=== PATIENT | male | born 1945 | race Caucasian/White ===

== ENCOUNTER → 2016-10-03 | Outpatient (CLI) | payer OTHER | LOC: BHFA 09:30 | PROVIDERS: ATTEND Internal Medicine Cardiovascular Disease | DX: I35.0 Nonrheumatic aortic (valve) stenosis (principal); E78.5 Hyperlipidemia, unspecified | CPT/HCPCS: 78452; 93017; A9500 ==

== ENCOUNTER → 2016-11-26 | Outpatient (CLI) | payer OTHER | LOC: FIMAGING 08:52 | PROVIDERS: ATTEND Specialist | DX: C79.51 Secondary malignant neoplasm of bone (principal); C61 Malignant neoplasm of prostate | CPT/HCPCS: 78306; A9503 ==

== ENCOUNTER → 2017-03-21 | Outpatient (CLI) | payer OTHER ==
[~2017-03-21] MED LIST: GADOBUTROL 10 ML VIAL IVP ONE
== END ==
LOC: FIMAGING 19:21
PROVIDERS: ATTEND Internal Medicine Hematology & Oncology
DX: C79.51 Secondary malignant neoplasm of bone (principal); Z85.46 Personal history of malignant neoplasm of prostate; M51.36 Other intervertebral disc degeneration, lumbar region
CPT/HCPCS: 72158; A9585

== ENCOUNTER 2017-03-31 14:44 | Emergency (ER) | payer OTHER ==
[2017-03-31 14:56] VITALS: O2SAT 96
--- NOTE | 2017-03-31 15:28 | EDPHY ---
H & P Time Seen by Provider: 03/31/17 15:15 HPI/ROS: CHIEF COMPLAINT: Constipation HISTORY OF PRESENT ILLNESS: 71-year-old male with a history of metastatic prostate cancer presents with constipation and abdominal cramping. He was placed on Percocet 3 weeks ago and since then has had a problem with constipation. He has been unable to have a normal bowel movement for at least a week. He has used a Fleet enema and stool softeners without relief. Associated with moderate abdominal cramping and urge to defecate. REVIEW OF SYSTEMS: Constitutional: No fever, no chills Eyes: No visual changes ENT: No sore throat Respiratory: No cough, no shortness of breath Cardiac: No chest pain Genitourinary: No hematuria, no dysuria Musculoskeletal: No leg pain or swelling Skin: No rash Neurological: No headache Psychiatric: Situational depression Past Medical/Surgical History: 1. Metastatic prostate cancer. 2. Prostate removal. Social History: . Lives in [place]. Nonsmoker. Smoking Status: Never smoked Physical Exam: General Appearance: Alert, pleasant Eyes: Pupils equal and round, no conjunctival pallor ENT, Mouth: Mucous membranes moist Neck: Normal inspection Respiratory: Lungs are clear to auscultation Cardiovascular: Regular rate and rhythm Gastrointestinal: Abdomen is soft and non-tender Rectal: Fecal impaction Neurological: A&O, nonfocal, normal gait Skin: Warm and dry, no rash Extremities: Normal inspection Psychiatric: Mood and affect normal Constitutional: Initial Vital Signs Temperature (C) 36.8 C 03/31/17 14:54 Heart Rate 88 03/31/17 14:54 Respiratory Rate 18 03/31/17 14:54 Blood Pressure 102/66 03/31/17 14:54 O2 Sat (%) 96 03/31/17 14:54 O2 Delivery Mode Room Air Allergies/Adverse Reactions: hydrocodone bitartrate [From [place]] Allergy (Verified 05/26/14 20:31) Other-Enter Comments Home Medications: Medication Instructions Recorded Calcium Carbonate [Tums 500MG (*)] 1,000 mg PO DAILY 08/07/15 Ibuprofen [Advil] 400 mg PO DAILY PRN 08/07/15 Multivitamins [Multivitamin (*)] 1 each PO DAILY 08/07/15 Enzalutamide [Xtandi] 160 mg PO DAILY@20 07/12/16 Aspirin EC [Aspirin EC 325 mg (*)] 325 mg PO DAILY #0 tab 07/13/16 Clopidogrel Bisulfate [Plavix (*)] 75 mg PO DAILY #90 tab 07/13/16 Medical Decision Making ED Course/Re-evaluation: Manual disimpaction attempted, but the patient was unable to tolerate the procedure and the stool was a little out of reach. A soapsuds enema was given and he had a large bowel movement after the enema. He felt much better and was ready to go home. Abdomen was soft and nontender on discharge. dietary instructions given. Magnesium citrate 300 mg orally given. Differential Diagnosis: Differential diagnosis includes though it is not limited to appendicitis, cholecystitis, diverticulitis, pyelonephritis, bowel perforation, small bowel obstruction. - Data Points Medications Given: Discontinued Medications Magnesium Citrate (Magnesium Citrate) 300 ml PO EDNOW ONE Stop: 03/31/17 18:14 Last Admin: 03/31/17 18:25 Dose: 300 ml Departure - Departure Disposition: Home, Routine, Self-Care Clinical Impression: Fecal impaction Condition: Good Instructions: Constipation (ED), Fecal Impaction (ED) Referrals: Brannon Herman MD [Primary Care Provider] - As per Instructions Report Scribed for: Kelly Echevarria Report Scribed by: Ina Burton Date of Report: 03/31/17 Time of Report: 15:26 Physician Review and Approval Statement: 03/31/17 15:26 Portions of this note were transcribed by a medical anthropology director. I personally performed a history, physical exam, medical decision making, and confirmed accuracy of information the transcribed note.
[2017-03-31] MEDS ORDERED: MAGNESIUM CITRATE 300 ML BOTTLE PO ONE (18:13)
[2017-03-31 18:38] VITALS: BP 106/71; PULSE 81; RESP 17; TEMP 98.8
== END 2017-03-31 18:33 | disposition home or self-care (01) ==
DX: K56.41 Fecal impaction (principal); Z79.82 Long term (current) use of aspirin; Z85.46 Personal history of malignant neoplasm of prostate

== ENCOUNTER 2017-05-16 10:43 | Inpatient (IN) | payer OTHER ==
[2017-05-16] MEDS ORDERED: ACETAMINOPHEN 325 MG TAB PO PRN (11:55)
[2017-05-16] MEDS ORDERED: ONDANSETRON 4 MG/2 ML VIAL IVP PRN (11:55)
[2017-05-16] MEDS ORDERED: ONDANSETRON DISINTEGRATING 4 MG TAB PO PRN (11:55)
[2017-05-16] MEDS ORDERED: MAGNESIUM HYDROXIDE 30 ML UDCUP PO PRN (11:56)
[2017-05-16] MEDS ORDERED: BISACODYL 10 MG SUPP PR PRN (11:56)
[2017-05-16] MEDS ORDERED: POLYETHYLENE GLYCOL 3350 17 GM PKT PO PRN (11:56)
[2017-05-16] MEDS ORDERED: LACTULOSE 20 GM/30 ML UDCUP PO PRN (11:56)
[2017-05-16] MEDS: NS 1,000 ML IV SCH ×2 (12:26→20:18)
[2017-05-16 13:26] LABS: ABSOLUTE NRBC COUNT 0.25 10^3/uL (0-0.01); ADD DIFF? YES; ADD MORPH? NO; ATYPICAL LYMPHOCYTE FLAG 20 (0-99); FRAGMENT RBC FLAG 0 (0-99); HEMATOCRIT 35.8 % (40.0-51.0); HEMOGLOBIN 11.8 g/dL (13.7-17.5); LIPEMIA HEMOLYSIS FLAG 80 (0-99); MEAN CELL HEMOGLOBIN 33.4 pg (27.9-34.1); MEAN CELL VOLUME 101.4 fL (81.5-99.8); MEAN PLATELET VOLUME 9.9 fL (8.7-11.7); NRBC-AUTO% 0.7 % (0.0-0.2); PLATELET CLUMPS FLAG 10 (0-99); PLATELET COUNT 89 10^3/uL (150-400); RED BLOOD CELL COUNT 3.53 10^6/uL (4.40-6.38); RED CELL DISTRIBUTION WIDTH 14.6 % (11.5-15.2)
[2017-05-16 13:27] LABS: ADD SCAN? NO; LEFT SHIFT FLG 300 (0-99)
[2017-05-16 13:46] LABS: ALANINE AMINOTRANSFERASE 39 IU/L (21-72); ALBUMIN 3.8 g/dL (3.5-5.0); ALKALINE PHOSPHATASE 804 IU/L (38-126); ANION GAP 11 mEq/L (8-16); ASPARTATE AMINOTRANSFERASE 39 IU/L (17-59); BILIRUBIN,TOTAL 0.5 mg/dL (0.1-1.4); CALCIUM 8.2 mg/dL (8.5-10.4); CARBON DIOXIDE 23 mEq/l (22-31); CHLORIDE 105 mEq/L (97-110); CREATININE 0.7 mg/dL (0.7-1.3); GLOMERULAR FILTRATION RATE > 60; GLUCOSE 93 mg/dL (70-100); POTASSIUM 4.3 mEq/L (3.5-5.2); SODIUM 139 mEq/L (134-144); TOTAL PROTEIN 6.2 g/dL (6.3-8.2)
[2017-05-16] MEDS ORDERED: CALCIUM CARBONATE 500 MG CHEWABLE TAB PO PRN (13:53)
[2017-05-16] MEDS ORDERED: PROCHLORPERAZINE MALEATE 5 MG TAB PO PRN (13:53)
[2017-05-16] MEDS ORDERED: DOCUSATE SODIUM 100 MG CAP PO PRN (13:53)
[2017-05-16] MEDS ORDERED: OXYCODONE/APAP 5/325 TAB PO PRN (14:03)
[2017-05-16] MEDS ORDERED: oxyCODONE IR 5 MG TAB PO PRN (14:04)
[2017-05-16 14:27] LABS: PLATELET ESTIMATE DECREASED (ADEQ); POLYCHROMASIA 1+
[2017-05-16] MEDS: ACYCLOVIR 350 MG in D5W 100 ML IV SCH ×2 (14:35→22:22)
--- NOTE | 2017-05-16 14:59 | GHP ---
[f rep st] HISTORY AND PHYSICAL DATE OF ADMISSION: 05/16/2017 CHIEF COMPLAINT: Zoster facial infection. HISTORY OF PRESENT ILLNESS: A pleasant 71-year-old male with metastatic hormone refractory prostate cancer diagnosed in 2000, who was sent over from [facility] today with progressive facial zoster infection. The patient noticed tingling along his temporal region and left face on Friday. He notes some tingling in his gum and teeth. Intermittently throbbing pain at the temporal region. He also reports new sores in his mouth starting on Friday. He has had decreased p.o. intake due to these sores. Noted the left side of the face to be red on Friday, thus went to clinic. At that time, he was started on acyclovir and asked to come back today. The zoster infection has progressed; thus, he was a direct admit for further evaluation. He also reports hot flashes, chills, nausea, constipation. He has had intermittent constipation. Denies cough or dysuria. No headache. No eye pain. His chronic lumbar pain has improved since radiation. PAST MEDICAL HISTORY: Prostate cancer diagnosed in 2010, status post robotic assisted prostatectomy in September 2011, external beam radiation. Underwent scrotal orchiectomy, status post Xtandi. Received radiation to the lumbar spine. Currently on treatment with docetaxel plus prednisone, first cycle May 06. CT 02/23 showing diffuse bone METS to thoracic spine, ribs and scapula. Other past medical history, coronary artery disease status post 2 stents, cath in 2015 showed 3-vessel disease and he opted for medical management at that time. PAST SURGICAL HISTORY: Scrotal orchiectomy. SOCIAL HISTORY: Lives in [place] with his . He has been 27 years. No kids. No alcohol, tobacco, or illicits. 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 FAMILY HISTORY: Mother with liver cancer. Maternal grandmother with lung cancer. Maternal aunt with ovarian cancer. Dad was healthy and at age 93. HOME MEDICATIONS: Tums p.r.n., oxycodone/acetaminophen 7.5/325 p.r.n., Compazine as needed, Colace as needed, Protonix 40 mg daily, Lipitor 20 mg at bedtime, acyclovir 400 mg t.i.d., multivitamin, ibuprofen, Plavix 75 daily, aspirin 81. ALLERGIES: Hydrocodone from [place]. PHYSICAL EXAMINATION: VITAL SIGNS: Temperature at 37.1. Vital signs have not been completed. GENERAL: Patient is tearful, lying in bed in no acute distress. HEENT: PERRLA. EOMI. Left temporal region to chin with erythema and small vesicles not open. There are a couple of vesicles and erythema in the left ear canal. There is no eye involvement. He has a small ulceration of the left upper palate along with small ulcerations on tongue. CV: Regular rate and rhythm. no murmurs, gallops, or rubs. LUNGS: Clear. There are no crackles or wheezing. ABDOMEN: Soft, nontender, nondistended. Positive bowel sounds. : No suprapubic tenderness. MUSCULOSKELETAL: 5/5 upper and lower extremities. NEUROLOGIC: 2 through 12 intact. No eye lag or cranial involvement with infection. PSYCH: Alert and oriented x3. LABORATORY DATA: WBC is 35, hemoglobin 11, hematocrit 35, platelets 89. Sodium 139, potassium 4.3, chloride 105, carbon dioxide 23, BUN 17, creatinine 0.7, calcium is 8.2, total bilirubin is 0.5, alkaline phosphatase is 804, total protein is 6.2, albumin is 3.8. ASSESSMENT AND PLAN: 1. Facial zoster infection: progressed, despite outpatient therapy. No neurologic/ophthalmic involvement. Treat aggressively with IV acyclovir. 2. Leukocytosis: WBC 35. Likely due to GM-CSF, also on steroids. Negative CXR , UA. Afebrile. 3. Metastatic prostate cancer: Status post robotic prostatectomy, orchidectomy and XRT to the lumbar spine. He is currently on Docetaxel and prednisone. Continue prednisone. We will have Oncology evaluate in the morning. 4. Coronary artery disease: Triple multivessel disease on catheterization in 2016. At that time, opted for medical management. Continue aspirin, statin, and Plavix. 5. Mouth pain secondary to chemo related lesions. Viscous lidocaine. 6. Anemia is likely secondary to chemotherapy. No need for transfusion at this time. 7. Thrombocytopenia secondary to chemotherapy. No active bleeding at this time. 8. Chronic back pain: takes Percocet at home. Try low-dose PO dilaudid here with bowel regimen 9. Diet regular. 10. Deep venous thrombosis prophylaxis, SCDs. 11. Disposition: Patient warrants inpatient admission given zoster infection in an immunocompromised patient warranting IV acyclovir. /[id number]/MODL MTDD
[2017-05-16] MEDS: MBX SOLN 30 ML BOTTLE PO PRN ×2 (15:17→20:16)
--- NOTE | 2017-05-16 15:25 | GCON ---
[f rep st] CONSULTATION REASON FOR CONSULTATION: Hormone-refractory, castrate-resistant prostate cancer. RECOMMENDATIONS: 1. I would continue the patient on his prednisone 5 p.o. b.i.d.. 2. I agree with IV acyclovir. EXECUTIVE SUMMARY: This patient has an elevated white count from Neulasta shot. He was treated wit h his 1st dose of chemotherapy on May 06, at which time he received docetaxel for castrate-resist ant prostate cancer with bony dominant disease. The course was uncomplicated, and he had prophylact ic Neulasta because he has had apparently extensive marrow involvement and also just finished a cour se of radiation, and there was a concern about myelosuppression. The patient had 3 days' history of left oral pain and left face pain and had shingles. He was started a day ago or so on acyclovir, a nd he presents today for worsening symptoms of pain and cannot eat. He has no fever. REVIEW OF SYSTEMS: Otherwise unremarkable. The patient is a nonsmoker. PAST MEDICAL HISTORY: He has a history of coronary artery disease and in 2015 had a couple stents p laced. He has a remote history of nephrolithiasis. He had an orchiectomy for prostate cancer and, of course, he had radical prostatectomy in 2011. FAMILY HISTORY: Remarkable for liver cancer, lung cancer and ovarian cancer. 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 He is to for a number of year s. PHYSICAL EXAMINATION: GENERAL: A gentleman looking his stated age. EYES: He has no scleral icter us. NECK: No cervical or supraclavicular adenopathy. LUNGS: Clear to P and A. CV: S1 normal. S2 normally split. No S3, S4 or murmur. ABDOMEN: Soft, nontender, and there is no hepatosplenomeg javi. HENT: He has left V3 distribution of shingles going up to the ear, down along the chin, and i nvolves the inside of his mouth on the left half of his tongue. ASSESSMENT: Shingles, V3 distribution. RECOMMENDATIONS: I recommend continuing with the acyclovir, and he needs probably some KBX for mout h sores, and we can treat him with dexamethasone oral suspension. He should improve, although it ma y take a week or 2 to heal. /[id number]/MODL
[2017-05-16 15:43] LABS: COLOR PALE YELLOW; LEUKOCYTE ESTERASE,URINE NEGATIVE (NEGATIVE); NITRITE,URINE NEGATIVE (NEGATIVE)
[2017-05-16] MEDS: SENNOSIDES/DOCUSATE SODIUM TAB PO SCH (20:17)
[2017-05-16] MEDS: ATORVASTATIN CALCIUM 20 MG TAB PO SCH (20:17)
[2017-05-16] MEDS: ASPIRIN 81 MG CHEWABLE TAB PO SCH (20:17)
[2017-05-16] MEDS: predniSONE 5 MG TAB PO SCH (20:17)
[2017-05-16] MEDS: PANTOPRAZOLE SODIUM 40 MG TAB PO SCH (20:17)
[2017-05-16] MEDS: CLOPIDOGREL BISULFATE 75 MG TAB PO SCH (20:17)
[2017-05-16] MEDS: HYDROmorphONE/DILAUDID 2 MG TAB PO PRN (20:30)
[2017-05-16] MEDS: LIDOCAINE 2% VISCOUS 15 ML UDCUP PO PRN (22:23)
[2017-05-17] MEDS: NS 1,000 ML IV SCH ×3 (03:20→20:40)
[2017-05-17] MEDS: LIDOCAINE 2% VISCOUS 15 ML UDCUP PO PRN ×3 (04:28→20:42)
[2017-05-17] MEDS: MBX SOLN 30 ML BOTTLE PO PRN ×4 (04:29→20:42)
[2017-05-17] MEDS: HYDROmorphONE/DILAUDID 2 MG TAB PO PRN ×2 (04:29→20:41)
[2017-05-17] MEDS: ACYCLOVIR 350 MG in D5W 100 ML IV SCH ×3 (05:55→22:15)
[2017-05-17 05:59] LABS: ABSOLUTE NRBC COUNT 0.22 10^3/uL (0-0.01); ADD DIFF? YES; ADD MORPH? NO; ATYPICAL LYMPHOCYTE FLAG 20 (0-99); FRAGMENT RBC FLAG 0 (0-99); HEMATOCRIT 31.6 % (40.0-51.0); HEMOGLOBIN 10.4 g/dL (13.7-17.5); LIPEMIA HEMOLYSIS FLAG 80 (0-99); MEAN CELL HEMOGLOBIN 32.9 pg (27.9-34.1); MEAN CELL HEMOGLOBIN CONCENTR. 32.9 g/dL (32.4-36.7); MEAN PLATELET VOLUME 9.7 fL (8.7-11.7); NRBC-AUTO% 0.8 % (0.0-0.2); PLATELET CLUMPS FLAG 0 (0-99); PLATELET COUNT 73 10^3/uL (150-400); RED BLOOD CELL COUNT 3.16 10^6/uL (4.40-6.38); RED CELL DISTRIBUTION WIDTH 14.6 % (11.5-15.2)
[2017-05-17 06:04] LABS: LEFT SHIFT FLG 210 (0-99)
[2017-05-17 06:05] LABS: ADD SCAN? NO
[2017-05-17 06:22] LABS: ANION GAP 10 mEq/L (8-16); CALCIUM 7.2 mg/dL (8.5-10.4); CARBON DIOXIDE 19 mEq/l (22-31); CHLORIDE 108 mEq/L (97-110); CREATININE 0.7 mg/dL (0.7-1.3); GLOMERULAR FILTRATION RATE > 60; GLUCOSE 87 mg/dL (70-100); POTASSIUM 4.4 mEq/L (3.5-5.2); SODIUM 137 mEq/L (134-144)
[2017-05-17 06:42] LABS: MACROCYTES 1+; PLATELET ESTIMATE DECREASED (ADEQ); POLYCHROMASIA 1+; TOXIC GRANULATION PRESENT
[2017-05-17] MEDS: predniSONE 5 MG TAB PO SCH ×2 (09:36→20:41)
[2017-05-17] MEDS: MULTIVITAMINS 1 EACH TAB PO SCH (09:36)
[2017-05-17] MEDS: SENNOSIDES/DOCUSATE SODIUM TAB PO SCH ×2 (09:37→20:41)
[2017-05-17] MEDS: ENOXAPARIN 40 MG/0.4 ML SYR SC SCH (09:38)
--- NOTE | 2017-05-17 10:42 | ASMTCMCOM ---
CM Note CM Note Notes: Pt with metastatic prostate cancer admitted with shingles. Pt is curently on IV acyclovir. It is too early to tell what his needs will be at [place]. C/M to follow. Date Signed: 05/17/2017 10:41 AM Electronically Signed By:Serena Salinas
--- NOTE | 2017-05-17 10:43 | SOAPPROG ---
SOAP Progress Note Assessment/Plan: Assessment: 1. Prostate cancer, metastatic, s/p cycle 1 of Taxotere 2. Zoster in multiple dermatomes Appears to be clinically improving. Plan: - continue IV acyclovir and prednisone - continue pain management 05/17/17 10:42 Subjective: feeling somewhat better Objective: exam: NAD erythematous rash on L chin, tongue, and forehead. Some vesicular lesions Vital Signs Temp Pulse Resp BP Pulse Ox 36.8 C 78 15 126/71 H 94 05/17/17 08:00 05/17/17 08:00 05/17/17 08:00 05/17/17 08:00 05/17/17 08:00 Laboratory Results 05/17/17 05:44 05/17/17 05:44 05/16/17 05/17/17 05/18/17 05:59 05:59 05:59 Intake Total 2954 Balance 2954 ICD10 Worksheet Patient Problems: Problems Problem Status Onset Adenocarcinoma of prostate Acute Bone metastases Acute Hydronephrosis with ureteral calculus Acute Parotitis Acute Ureterolithiasis Acute
--- NOTE | 2017-05-17 14:32 | HOSPPROG ---
Hospitalist Progress Note Assessment/Plan: # Acute facial zoster- affecting multiple dermatomes- sparing the eye - lesions are crusting - continue IV acyclovir - continue pain management with Dilaudid, viscous lidocaine, MBX # metastatic prostate cancer- actively receiving treatment- oncology following # acute leukocytosis WBC 35-> 28 presumed secondary acute zoster and growth stimulating factor- patient afebrile Chest x-ray (personally reviewed and interpreted)- no infiltrates -oxygen saturations 94% on room air - continue to monitor # coronary artery disease- no chest pain complaints - continue home meds # thrombocytopenia- presumed secondary to chemotherapy- no active bleeding - continue to monitor # prophylaxis Lovenox # diet regular # disposition-greater than 2 midnights as patient requiring IV acyclovir in close monitoring for active infection during immunosuppression Have discussed case with Dr. Mahan will continue IV acyclovir today reassess patient's progress in the morning Subjective: Pain appropriately controlled on current meds Objective: Vital Signs Temp Pulse Resp BP Pulse Ox 36.8 C 78 15 126/71 H 94 05/17/17 08:00 05/17/17 08:00 05/17/17 08:00 05/17/17 08:00 05/17/17 08:00 Laboratory Results 05/17/17 05:44 05/17/17 05:44 05/16/17 05/17/17 05/18/17 05:59 05:59 05:59 Intake Total 2954 Balance 2954 - Physical Exam Constitutional: chronically ill appearing Eyes: anicteric sclera Ears, Nose, Mouth, Throat: other ( left side of tongue with cluster of vesicles) Cardiovascular: regular rate and rhythym Respiratory: no respiratory distress Gastrointestinal: normoactive bowel sounds Genitourinary: no bladder fullness Skin: warm Musculoskeletal: No asymmetric calves Neurologic: AAOx3 Psychiatric: interacting appropriately Lymph, Heme, Immunologic: no cervical LAD ICD10 Worksheet Patient Problems: Problems Problem Status Onset Adenocarcinoma of prostate Acute Bone metastases Acute Hydronephrosis with ureteral calculus Acute Parotitis Acute Ureterolithiasis Acute
[2017-05-17] MEDS: IBUPROFEN 200 MG TAB PO PRN (14:40)
[2017-05-17] MEDS: ATORVASTATIN CALCIUM 20 MG TAB PO SCH (20:40)
[2017-05-17] MEDS: ASPIRIN 81 MG CHEWABLE TAB PO SCH (20:40)
[2017-05-17] MEDS: CLOPIDOGREL BISULFATE 75 MG TAB PO SCH (20:41)
[2017-05-17] MEDS: PANTOPRAZOLE SODIUM 40 MG TAB PO SCH (20:41)
[2017-05-18 04:30] VITALS: RESP 16
[2017-05-18] MEDS: NS 1,000 ML IV SCH (04:30)
[2017-05-18] MEDS: MBX SOLN 30 ML BOTTLE PO PRN ×2 (04:30→20:41)
[2017-05-18] MEDS: LIDOCAINE 2% VISCOUS 15 ML UDCUP PO PRN (04:31)
[2017-05-18] MEDS: HYDROmorphONE/DILAUDID 2 MG TAB PO PRN (04:55)
[2017-05-18 05:35] LABS: HEMATOCRIT 30.9 % (40.0-51.0); HEMOGLOBIN 10.2 g/dL (13.7-17.5); MEAN CELL HEMOGLOBIN 33.2 pg (27.9-34.1); MEAN CELL VOLUME 100.7 fL (81.5-99.8); RED BLOOD CELL COUNT 3.07 10^6/uL (4.40-6.38); RED CELL DISTRIBUTION WIDTH 14.6 % (11.5-15.2)
[2017-05-18] MEDS: ACYCLOVIR 350 MG in D5W 100 ML IV SCH ×3 (06:06→20:35)
[2017-05-18] MEDS: SENNOSIDES/DOCUSATE SODIUM TAB PO SCH ×2 (08:28→20:45)
[2017-05-18] MEDS: MULTIVITAMINS 1 EACH TAB PO SCH (08:35)
[2017-05-18] MEDS: predniSONE 5 MG TAB PO SCH ×2 (08:35→20:32)
[2017-05-18] MEDS: ENOXAPARIN 40 MG/0.4 ML SYR SC SCH (08:40)
--- NOTE | 2017-05-18 12:06 | SOAPPROG ---
SOAP Progress Note Assessment/Plan: Assessment: 1. Prostate cancer, metastatic, s/p cycle 1 of Taxotere 2. Zoster in multiple dermatomes Appears to be clinically improving. Plan: - continue IV acyclovir and prednisone. Will defer to internal medicine / ID re : when to change to PO - continue pain management - next taxotere due 05/27. should likely stay on suppressive acyclovir for subsequent cycles 05/17/17 10:42 05/18/17 12:05 Subjective: feeling better. less pain. Objective: exam: NAD zoster lesions are crusted over - no new vesicles. otherwise unchanged Vital Signs Temp Pulse Resp BP Pulse Ox 36.9 C 74 16 122/68 H 96 05/18/17 08:00 05/18/17 08:00 05/18/17 08:00 05/18/17 08:00 05/18/17 08:00 Laboratory Results 05/18/17 05:17 05/17/17 05:44 05/17/17 05/18/17 05/19/17 05:59 05:59 05:59 Intake Total 2954 3961 Balance 2954 3961 ICD10 Worksheet Patient Problems: Problems Problem Status Onset Adenocarcinoma of prostate Acute Bone metastases Acute Hydronephrosis with ureteral calculus Acute Parotitis Acute Ureterolithiasis Acute
--- NOTE | 2017-05-18 13:53 | HOSPPROG ---
Hospitalist Progress Note Assessment/Plan: # Acute facial zoster- affecting multiple dermatomes- sparing the eye - lesions are crusting pain controlled well with current regimen- less difficulty eating this am - continue IV acyclovir- transition to PO tomorrow will complete a 10d course on acyclovir 1g TID - recommending valacyclovir 1 gram daily while receiving chemo - continue pain management with Dilaudid, viscous lidocaine, MBX # metastatic prostate cancer- actively receiving treatment- oncology following # acute leukocytosis WBC 35-> 26 presumed secondary acute zoster and growth stimulating factor- patient afebrile Chest x-ray (personally reviewed and interpreted)- no infiltrates -oxygen saturations 94% on room air - continue to monitor # coronary artery disease- no chest pain complaints - continue home meds # thrombocytopenia- presumed secondary to chemotherapy- no active bleeding - continue to monitor # prophylaxis Lovenox # diet regular # disposition-greater than 2 midnights as patient requiring IV acyclovir in close monitoring for active infection during immunosuppression Have discussed case with Dr. Hathaway - will treat for 10d course acutely and then daily suppressive dosing until completion of chemo Subjective: feeling better Objective: Vital Signs Temp Pulse Resp BP Pulse Ox 36.9 C 74 16 122/68 H 96 05/18/17 08:00 05/18/17 08:00 05/18/17 08:00 05/18/17 08:00 05/18/17 08:00 Laboratory Results 05/18/17 05:17 05/17/17 05:44 05/17/17 05/18/17 05/19/17 05:59 05:59 05:59 Intake Total 2954 3961 Balance 2954 3961 - Physical Exam Constitutional: chronically ill appearing Eyes: anicteric sclera Ears, Nose, Mouth, Throat: moist mucous membranes Cardiovascular: regular rate and rhythym Respiratory: no respiratory distress Gastrointestinal: normoactive bowel sounds Genitourinary: no bladder fullness Skin: warm, other (lesions on chin and cheek crusting) Musculoskeletal: No asymmetric calves Neurologic: AAOx3 Psychiatric: interacting appropriately Lymph, Heme, Immunologic: no cervical LAD ICD10 Worksheet Patient Problems: Problems Problem Status Onset Adenocarcinoma of prostate Acute Bone metastases Acute Hydronephrosis with ureteral calculus Acute Parotitis Acute Ureterolithiasis Acute
[2017-05-18] MEDS: IBUPROFEN 200 MG TAB PO PRN (14:46)
--- NOTE | 2017-05-18 16:09 | ASMTCMCOM ---
CM Note CM Note Notes: Plan is for to tx to oral acyclovir. Anticipate pt will DC with no needs. CM available if needs change. Date Signed: 05/18/2017 04:09 PM Electronically Signed By:Serena Salinas
[2017-05-18] MEDS: ASPIRIN 81 MG CHEWABLE TAB PO SCH (20:31)
[2017-05-18] MEDS: PANTOPRAZOLE SODIUM 40 MG TAB PO SCH (20:32)
[2017-05-18] MEDS: ATORVASTATIN CALCIUM 20 MG TAB PO SCH (20:32)
[2017-05-18] MEDS: CLOPIDOGREL BISULFATE 75 MG TAB PO SCH (20:32)
[2017-05-19] MEDS ORDERED: ENOXAPARIN 80 MG/0.8 ML SYR SC SCH
[2017-05-19] MEDS: ACYCLOVIR 350 MG in D5W 100 ML IV SCH (05:57)
[2017-05-19] MEDS: IBUPROFEN 200 MG TAB PO PRN (07:28)
[2017-05-19] MEDS: MULTIVITAMINS 1 EACH TAB PO SCH (07:29)
[2017-05-19] MEDS: SENNOSIDES/DOCUSATE SODIUM TAB PO SCH (07:30)
[2017-05-19] MEDS: predniSONE 5 MG TAB PO SCH (07:30)
[2017-05-19] MEDS: ENOXAPARIN 40 MG/0.4 ML SYR SC SCH (07:31)
[2017-05-19 07:47] VITALS: BP 136/64; PULSE 80; TEMP 97.6; O2SAT 95
--- NOTE | 2017-05-19 11:42 | SOAPPROG ---
SOAP Progress Note Assessment/Plan: Assessment: 1. Prostate cancer, metastatic, s/p cycle 1 of Taxotere 2. Zoster in multiple dermatomes Clinically improving. Plan: - continue acyclovir and prednisone. Will defer to internal medicine / ID re: when to change to PO - continue pain management - next taxotere due 05/27. should likely stay on suppressive acyclovir for subsequent cycles 05/17/17 10:42 05/18/17 12:05 05/19/17 11:41 Subjective: stopped taking pain meds last night - pain recurred. feeling better now. Objective: exam: persistent erythema. no new zoster lesions. Vital Signs Temp Pulse Resp BP Pulse Ox 36.4 C 80 16 136/64 H 95 05/19/17 07:35 05/19/17 07:35 05/19/17 07:35 05/19/17 07:35 05/19/17 07:35 Laboratory Results 05/18/17 05:17 05/17/17 05:44 05/18/17 05/19/17 05/20/17 05:59 05:59 05:59 Intake Total 3961 665 1070 Balance 3961 665 1070 ICD10 Worksheet Patient Problems: Problems Problem Status Onset Adenocarcinoma of prostate Acute Bone metastases Acute Hydronephrosis with ureteral calculus Acute Parotitis Acute Ureterolithiasis Acute
--- NOTE | 2017-05-19 14:53 | ASDISCHSUM ---
Discharge Information Plan Status:Home with No Needs Medically Cleared to Leave: Discharge Date:05/19/2017 01:26 PM CM D/C Disposition:Home, Routine, Self-Care ADT D/C Disposition:Home, Routine, Self-Care Projected Discharge Date:05/19/2017 01:26 PM Transportation at D/C:Family Discharge Delay Reason: Follow-Up Date:05/19/2017 01:26 PM Discharge Slot: Final Diagnosis: Placement Information Patient Contact Information Contact Name:ROMULO Relationship: Address:[address] City:[place] Alternate Phone: [facility]/Zip Code:[place] [address] Email: Financial Information Financial Class: Primary Plan Desc:MEDICARE INPATIENT Primary Plan Number:[id number] Secondary Plan Desc: Secondary Plan Number:[id number] Assessment Information [facility] CM Progress Note CM Note CM Note Notes: Pt with metastatic prostate cancer admitted with shingles. Pt is curently on IV acyclovir. It is too early to tell what his needs will be at DC. C/M to follow. Date Signed: 05/17/2017 10:41 AM Electronically Signed By:Serena Salinas [facility] CM Progress Note CM Note CM Note Notes: Plan is for to tx to oral acyclovir. Anticipate pt will DC with no needs. CM available if needs change. Date Signed: 05/18/2017 04:09 PM Electronically Signed By:Serena Salinas Intervention Information
--- NOTE | 2017-05-19 14:55 | ASMTCMCOM ---
CM Note CM Note Notes: Patient discharged home with no apparent additional C/M needs. Pt to follow up at [facility] with oncologist. Date Signed: 05/19/2017 02:54 PM Electronically Signed By:Jessy Salmon
--- NOTE | 2017-05-19 15:40 | GDS ---
[f rep st] DISCHARGE SUMMARY CHIEF COMPLAINT: Facial pain. HISTORY OF PRESENT ILLNESS: This is a 71-year-old male with a history of metastatic prostate cancer , actively receiving chemotherapy, who presented to his outpatient oncology clinic with pain in a de rmatomal distribution. For details of patient's initial presentation, please see the history and ph ysical dated 05/16/2017. PROCEDURES: None. CONSULTATIONS: Oncology. HOSPITAL COURSE: 1. Acute facial zoster. Patient presented with dermatomal vesicular eruption of his left chin, inc luding his tongue and periauricular area; thankfully sparing his eye completely. The patient was in itiated on high-dose IV acyclovir with rapid improvement of his fascicular rash to complete crusting on the day of disposition. He will complete a 10-day course of high-dose acyclovir and then be tra nsitioned to suppressive dosing while on the duration of his chemotherapy. 2. Acute leukocytosis. Patient had improvement of his white count from admission 35 to 26 at dispo sition. This can be followed in the outpatient setting by Oncology. 3. Metastatic prostate cancer. The patient is on a careful regimen on the outside with steroids, b owel regimen and pain medications. These are continued at disposition. We did add oral Dilaudid, w hich he tolerated well inside the hospital, for pain related to his zoster rash, as well as oral vis cous lidocaine. Expect he will be weaned off these medications over the course of the next week or so. 4. Coronary artery disease. Patient did not have any chest pain or cardiac complaints during this hospital stay. He was continued on his Plavix, aspirin and statin. MEDICATIONS AT THE TIME OF TRANSFER: Please reference the med rec printed on 05/19/2017. FOLLOWUP APPOINTMENTS: Include with [facility] prior to completion of his treatment dose acyclovir for ap propriate transition to prophylactic therapy. PENDING STUDIES AT THE TIME OF THIS DICTATION: None. I spent greater than 30 minutes in the planning and coordination of this discharge. /[id number]/MODL
== END 2017-05-19 13:26 | disposition home or self-care (01) | DRG 155 ==
LOC: F1N 11:05
PROVIDERS: ADMIT Nurse Practitioner Family; ATTEND Internal Medicine Hematology & Oncology
DX: B00.1 Herpesviral vesicular dermatitis (principal); C61 Malignant neoplasm of prostate; C79.51 Secondary malignant neoplasm of bone; D64.81 Anemia due to antineoplastic chemotherapy; T45.1X5A Adverse effect of antineoplastic and immunosuppressive drugs, initial encounter; D69.59 Other secondary thrombocytopenia; K12.1 Other forms of stomatitis; I25.10 Atherosclerotic heart disease of native coronary artery without angina pectoris; M54.9 Dorsalgia, unspecified; Z95.5 Presence of coronary angioplasty implant and graft; Z87.442 Personal history of urinary calculi
CPT/HCPCS: 97162-GP; 97530-GP; G8978-GP-CI; G8979-GP-CI; G8980-GP-CI; J0133; J1650

== ENCOUNTER → 2017-08-12 | Outpatient (CLI) | payer OTHER | LOC: FIMAGING 09:24 | PROVIDERS: ATTEND Internal Medicine Hematology & Oncology | PROC: CP1Z1ZZ Planar Nuclear Medicine Imaging of Musculoskeletal System, All using Technetium 99m (Tc-99m) (ICD-10-PCS; principal; 2017-08-12) | DX: C79.51 Secondary malignant neoplasm of bone (principal); C61 Malignant neoplasm of prostate | CPT/HCPCS: 78306; A9503 ==

== ENCOUNTER 2017-10-18 10:48 | Inpatient (IN) | payer OTHER ==
[2017-10-18] MEDS: NS 1,000 ML IV ONE ×2 (11:20→12:00)
[2017-10-18] MEDS ORDERED: NS 2,200 ML IV ONE (11:29)
[2017-10-18 11:31] LABS: PLATELET COUNT 37 10^3/uL (150-400)
[2017-10-18] MEDS ORDERED: NS 1,000 ML IV ONE (11:35)
--- NOTE | 2017-10-18 12:09 | EDPHY ---
HPI/HX/ROS/PE/MDM Narrative: CHIEF COMPLAINT: Nausea/vomiting, weakness. HPI: This patient is a 72 year old male with history of metastatic prostate cancer complaining of nausea, vomiting, and weakness. His cancer is metastatic to bone , particularly in his lower ribs and spine, which causes considerable pain. He is treated with 12mcg Fentanyl patches, and recently increased his dosage to control pain. This has caused vomiting and diarrhea for several days and he has not been able to eat much. Today, he has had severe fatigue, weakness, and shaking. He needed to crawl to move today, and he endorses double vision due to fatigue. He has not had further diarrhea, but continues to experience nausea and multiple episodes of vomiting and dry heaves. No hematemesis. He has been unable to eat or drink. He denies fever. He does not have any new or different pain today. He underwent chemotherapy in the past, but this treatment was unsuccessful. He denies chest pain, shortness of breath, or other associated symptoms. REVIEW OF SYSTEMS: Aside from elements discussed in the HPI, a comprehensive 10-point review of systems was reviewed and is negative. PMH: Metastatic prostate cancer. SOCIAL HISTORY: . at bedside. Lives in [place]. Retired. PHYSICAL EXAM: General:Patient is pale, alert, in no acute distress. ENT:Eyes are normal to inspection. Dry mucous membranes. Neck: Normal inspection. Full range of motion. Respiratory:No respiratory distress. Breath sounds normal bilaterally. Cardiovascular: Regular rate and rhythm. Strong peripheral pulses. Normal cap refill. Abdomen:The abdomen is nontender to palpation. There are no peritoneal signs. There are normal bowel sounds. Back: Normal to inspection. No tenderness to palpation. Skin: Normal color. No rash. Warm and dry. Extremities: Normal appearance. Full range of motion. Neuro: Oriented x3. Normal motor function. Normal sensory function. ED Course: 72 y/o male with history of metastatic prostate cancer presents with weakness and nausea due to recent Fentanyl dose increase. Discussed admission for pain control, nausea, dehydration. The patient is agreeable to this. IV established. Plan for labs including CBC, chemistries, UA, liver. Laboratory studies reviewed. Patient is anemic, Hct 24.9. Evidence fo dehydration and renal insufficiency. Creatinine elevated at 1.7. 11:57 Spoke with hospitalist service. Dr. Mosher accepts admission for dehydration, renal insufficiency, anemia. - Data Points Laboratory Results: Laboratory Results 10/18/17 11:20 10/18/17 11:20 10/18/17 10/18/17 11:20 11:20 WBC 6.36 10^3/uL 10^3/uL (3.80-9.50) RBC 2.24 10^6/uL L 10^6/uL (4.40-6.38) Hgb 7.7 g/dL L g/dL (13.7-17.5) Hct 24.9 % L % (40.0-51.0) MCV 111.2 fL H fL (81.5-99.8) MCH 34.4 pg H pg (27.9-34.1) MCHC 30.9 g/dL L g/dL (32.4-36.7) RDW 20.5 % H % (11.5-15.2) Plt Count 37 10^3/uL L 10^3/uL (150-400) MPV 9.7 fL fL (8.7-11.7) Neut % (Auto) Not Reported Lymph % (Auto) Not Reported [place] % (Auto) Not Reported Eos % (Auto) Not Reported Baso % (Auto) Not Reported Nucleat RBC Rel Count 8.8 % H % (0.0-0.2) Absolute Neuts (auto) Not Reported Absolute Lymphs (auto) Not Reported Absolute Monos (auto) Not Reported Absolute Eos (auto) Not Reported Absolute Basos (auto) Not Reported Absolute Nucleated RBC 0.56 10^3/uL H 10^3/uL (0-0.01) Immature Gran % Not Reported Seg Neutrophils % 65 % % Band Neutrophils % 14 % % Lymphocytes % 4 % % Monocytes % 10 % % Metamyelocytes % 5 % % Myelocytes % 2 % % Immature Gran # Not Reported Absolute Seg Neuts 4.13 10^/uL 10^/uL (1.70-6.50) Absolute Band Neuts 0.89 10^3/uL H 10^3/uL (0.00-0.70) Absolute Lymphocytes 0.25 10^3/uL L 10^3/uL (1.00-3.00) Absolute Monocytes 0.64 10^3/uL 10^3/uL (0.30-0.80) Absolute Metamyelocyte 0.32 10^3/mL H 10^3/mL (0.00-0.00) Absolute Myelocytes 0.13 10^3/mL H 10^3/mL (0.00-0.00) Nucleated RBCs 9 /100 WBC H /100 WBC (0-0) Platelet Estimate DECREASED L (ADEQ) Polychromasia 2+ H Basophilic Stippling 1+ H Tear Drop Cells 2+ H Oval Macrocytes 1+ H Keratocytes 1+ H Schistocytes 1+ H Smear Review By Pending Sodium 140 mEq/L mEq/L (135-145) Potassium 4.9 mEq/L mEq/L (3.5-5.2) Chloride 104 mEq/L mEq/L (97-110) Carbon Dioxide 21 mEq/l L mEq/l (22-31) Anion Gap 15 mEq/L mEq/L (8-16) BUN 36 mg/dL H mg/dL (7-23) Creatinine 1.7 mg/dL H mg/dL (0.7-1.3) Estimated GFR 40 Glucose 126 mg/dL H mg/dL (70-100) Calcium 9.2 mg/dL mg/dL (8.5-10.4) Total Bilirubin 0.8 mg/dL mg/dL (0.1-1.4) Conjugated Bilirubin 0.2 mg/dL mg/dL (0.0-0.5) Unconjugated Bilirubin 0.6 mg/dL mg/dL (0.0-1.1) AST 85 IU/L H IU/L (17-59) ALT 36 IU/L IU/L (21-72) Alkaline Phosphatase 2183 IU/L H IU/L (38-126) Total Protein 5.6 g/dL L g/dL (6.3-8.2) Albumin 3.6 g/dL g/dL (3.5-5.0) Medications Given: Discontinued Medications Sodium Chloride (Ns) 1,000 mls @ 0 mls/hr IV EDNOW ONE; Wide Open PRN Reason: Protocol Stop: 10/18/17 11:04 Last Admin: 10/18/17 12:00 Dose: 1,000 mls General Time Seen by Provider: 10/18/17 11:01 Initial Vital Signs: Initial Vital Signs Temperature (C) 36.3 C 10/18/17 10:57 Heart Rate 94 10/18/17 10:57 Respiratory Rate 17 10/18/17 10:57 Blood Pressure 89/59 L 10/18/17 10:57 O2 Sat (%) 90 L 10/18/17 10:57 O2 Delivery Mode Nasal Cannula O2 (L/minute) 3 Allergies/Adverse Reactions: hydrocodone bitartrate [From [place]] Allergy (Verified 10/18/17 10:50) Other-Enter Comments Home Medications: Medication Instructions Recorded Abiraterone Acetate [Zytiga] 1,000 mg PO DAILY 10/18/17 Acyclovir [Zovirax 400 mg (*)] 400 mg PO BID 10/18/17 Aspirin [Aspirin 81mg (*)] 81 mg PO HS 10/18/17 Atorvastatin Calcium [Lipitor 20 20 mg PO HS 10/18/17 mg (*)] Docusate Sodium [Colace 100 MG (*)] 100 mg PO DAILY PRN 10/18/17 Gabapentin [Neurontin 300 MG (*)] 600 mg PO QID 10/18/17 Ibuprofen [Motrin (*)] 200 mg PO 5XD@05,09,13,17,21 10/18/17 Ibuprofen [Motrin (*)] 200 mg PO DAILY@0100 PRN 10/18/17 Multivitamins [Multivitamin (*)] 1 each PO DAILY 10/18/17 Ondansetron HCl [Zofran] 8 mg PO Q8H PRN 10/18/17 Prochlorperazine Maleate 5 mg PO Q6H PRN 10/18/17 [Compazine 5mg (*)] fentaNYL [Duragesic 12 MCG Patch 24 mcg TD Q72H 10/18/17 (*)] oxyCODONE/APAP 5/325 [Percocet 1 tab PO Q4H PRN 10/18/17 5/325 (*)] predniSONE 5 mg PO BID 10/18/17 traMADol [Ultram 50 mg (*)] 50 mg PO Q6H PRN 10/18/17 Departure - Departure Disposition: [facility] Acute Clinical Impression: Dehydration, Renal insufficiency, Prostate cancer metastatic to bone Anemia Qualifiers: Anemia type: unspecified type Qualified Code(s): D64.9 - Anemia, unspecified Condition: Fair Report Scribed for: Ede Salazar Report Scribed by: Ina Burton Date of Report: 10/18/17 Time of Report: 12:18 Physician Review and Approval Statement: Portions of this note were transcribed by an ED scribe. I personally performed the history, physical exam, and medical decision making; and confirm the accuracy of the information in the transcribed note.
[2017-10-18] MEDS ORDERED: NON-FORMULARY NEW DRUG (Ondansetron Hcl [Zofran] 8 MG) PO PRN (15:45)
[2017-10-18] MEDS ORDERED: OXYCODONE/APAP 5/325 TAB PO PRN (15:45)
[2017-10-18] MEDS ORDERED: DOCUSATE SODIUM 100 MG CAP PO PRN (15:45)
[2017-10-18] MEDS ORDERED: fentaNYL 12 MCG PATCH TD SCH (15:45)
[2017-10-18] MEDS ORDERED: ONDANSETRON DISINTEGRATING 4 MG TAB PO PRN (16:13)
--- NOTE | 2017-10-18 16:27 | PDGENHP ---
History and Physical - Chief Complaint N/V/Poor oral intake - History of Present Illness This is a 72 yo male with hx of met prostate cancer to bone who p/w dehydration due to n/v and poor oral intake. He attributes his nause and vomiting to increasing his fentany patch dose. But he has also had very poor po and poor appetite in the last week or so. In the E.D. he was found to by hypotensive and given several bags of IVF. He feels slightly better. He has not had fever, cough, diarrhea, diaphoresis, urinary sx's. He does not have leukocytosis He and his are worried about the anemia and wondering if this is contributing to his low energy and fatigue. He does not have any known active bleeding and denies abd pain or melena. PMH: met prostate cancer to bone, CAD, chronic steroid use, shingles, chronic pain syndrome, chronic low back pain PSHx: Orchectomy, radical prostatectomy SocHx: lives with , no T/E/I FmHx: + liver cancer, lung cancer, ovarian cancer Data: no leukocytosis Hgb 7.7 Platelets 37 Cr 1.7 BUN 36 History Information - Allergies/Home Medication List Allergies/Adverse Reactions: hydrocodone bitartrate [From [place]] Allergy (Verified 10/18/17 10:50) Other-Enter Comments Home Medications: Abiraterone Acetate [Zytiga] 1,000 mg PO DAILY 10/18/17 [Last Taken 10/16/17] Acyclovir [Zovirax 400 mg (*)] 400 mg PO BID 10/18/17 [Last Taken 10/18/17 09:00 ] Aspirin [Aspirin 81mg (*)] 81 mg PO HS 10/18/17 [Last Taken 10/17/17] Atorvastatin Calcium [Lipitor 20 mg (*)] 20 mg PO HS 10/18/17 [Last Taken ] Docusate Sodium [Colace 100 MG (*)] 100 mg PO DAILY PRN 10/18/17 [Last Taken Unknown] Gabapentin [Neurontin 300 MG (*)] 600 mg PO QID 10/18/17 [Last Taken 10/18/17 09 :00] Ibuprofen [Motrin (*)] 200 mg PO 5XD@05,09,13,17,21 10/18/17 [Last Taken 09:00] Ibuprofen [Motrin (*)] 200 mg PO DAILY@0100 PRN 10/18/17 [Last Taken Unknown] Multivitamins [Multivitamin (*)] 1 each PO DAILY 10/18/17 [Last Taken 10/17/17] Ondansetron HCl [Zofran] 8 mg PO Q8H PRN 10/18/17 [Last Taken 10/18/17] Prochlorperazine Maleate [Compazine 5mg (*)] 5 mg PO Q6H PRN 10/18/17 [Last Taken 10/18/17] fentaNYL [Duragesic 12 MCG Patch (*)] 24 mcg TD Q72H 10/18/17 [Last Taken 10:00] oxyCODONE/APAP 5/325 [Percocet 5/325 (*)] 1 tab PO Q4H PRN 10/18/17 [Last Taken 10/17/17] predniSONE 5 mg PO BID 10/18/17 [Last Taken 10/18/17 09:00] traMADol [Ultram 50 mg (*)] 50 mg PO Q6H PRN 10/18/17 [Last Taken 10/18/17 05:00 ] I have personally reviewed and updated: medical history, social history - Social History Smoking Status: Never smoked Review of Systems Review of Systems: ROS: 10pt was reviewed & negative except for what was stated in HPI & below Physical Exam Physical Exam: Temp Pulse Resp BP Pulse Ox 36.8 C 79 15 124/68 H 94 10/18/17 16:19 10/18/17 16:19 10/18/17 16:19 10/18/17 16:19 10/18/17 16:19 O2 (L/minute) 2 Constitutional: chronically ill appearing Eyes: PERRL, EOMI Ears, Nose, Mouth, Throat: dry mucous membranes Cardiovascular: regular rate and rhythym, edema (trace) Respiratory: no respiratory distress, no rales or rhonchi, clear to auscultation Gastrointestinal: normoactive bowel sounds, soft, non-tender abdomen Genitourinary: no bladder fullness Skin: warm Musculoskeletal: generalized weakness Neurologic: AAOx3 Psychiatric: interacting appropriately, not anxious, not encephalopathic, thought process linear Lymph, Heme, Immunologic: No petechiae Lab Data & Imaging Review 10/18/17 11:20 10/18/17 11:20 WBC 6.36 10^3/uL (3.80-9.50) 10/18/17 11:20 RBC 2.24 10^6/uL (4.40-6.38) L 10/18/17 11:20 Hgb 7.7 g/dL (13.7-17.5) L 10/18/17 11:20 Hct 24.9 % (40.0-51.0) L 10/18/17 11:20 MCV 111.2 fL (81.5-99.8) H 10/18/17 11:20 MCH 34.4 pg (27.9-34.1) H 10/18/17 11:20 MCHC 30.9 g/dL (32.4-36.7) L 10/18/17 11:20 RDW 20.5 % (11.5-15.2) H 10/18/17 11:20 Plt Count 37 10^3/uL (150-400) L 10/18/17 11:20 MPV 9.7 fL (8.7-11.7) 10/18/17 11:20 Neut % (Auto) Not Reported 10/18/17 11:20 Lymph % (Auto) Not Reported 10/18/17 11:20 [place] % (Auto) Not Reported 10/18/17 11:20 Eos % (Auto) Not Reported 10/18/17 11:20 Baso % (Auto) Not Reported 10/18/17 11:20 Nucleat RBC Rel Count 8.8 % (0.0-0.2) H 10/18/17 11:20 Absolute Neuts (auto) Not Reported 10/18/17 11:20 Absolute Lymphs (auto) Not Reported 10/18/17 11:20 Absolute Monos (auto) Not Reported 10/18/17 11:20 Absolute Eos (auto) Not Reported 10/18/17 11:20 Absolute Basos (auto) Not Reported 10/18/17 11:20 Absolute Nucleated RBC 0.56 10^3/uL (0-0.01) H 10/18/17 11:20 Immature Gran % Not Reported 10/18/17 11:20 Seg Neutrophils % 65 % 10/18/17 11:20 Band Neutrophils % 14 % 10/18/17 11:20 Lymphocytes % 4 % 10/18/17 11:20 Monocytes % 10 % 10/18/17 11:20 Metamyelocytes % 5 % 10/18/17 11:20 Myelocytes % 2 % 10/18/17 11:20 Immature Gran # Not Reported 10/18/17 11:20 Absolute Seg Neuts 4.13 10^/uL (1.70-6.50) 10/18/17 11:20 Absolute Band Neuts 0.89 10^3/uL (0.00-0.70) H 10/18/17 11:20 Absolute Lymphocytes 0.25 10^3/uL (1.00-3.00) L 10/18/17 11:20 Absolute Monocytes 0.64 10^3/uL (0.30-0.80) 10/18/17 11:20 Absolute Metamyelocyte 0.32 10^3/mL (0.00-0.00) H 10/18/17 11:20 Absolute Myelocytes 0.13 10^3/mL (0.00-0.00) H 10/18/17 11:20 Nucleated RBCs 9 /100 WBC (0-0) H 10/18/17 11:20 Platelet Estimate DECREASED (ADEQ) L 10/18/17 11:20 Polychromasia 2+ H 10/18/17 11:20 Basophilic Stippling 1+ H 10/18/17 11:20 Tear Drop Cells 2+ H 10/18/17 11:20 Oval Macrocytes 1+ H 10/18/17 11:20 Keratocytes 1+ H 10/18/17 11:20 Schistocytes 1+ H 10/18/17 11:20 Sodium 140 mEq/L (135-145) 10/18/17 11:20 Potassium 4.9 mEq/L (3.5-5.2) 10/18/17 11:20 Chloride 104 mEq/L (97-110) 10/18/17 11:20 Carbon Dioxide 21 mEq/l (22-31) L 10/18/17 11:20 Anion Gap 15 mEq/L (8-16) 10/18/17 11:20 BUN 36 mg/dL (7-23) H 10/18/17 11:20 Creatinine 1.7 mg/dL (0.7-1.3) H 10/18/17 11:20 Estimated GFR 40 10/18/17 11:20 Glucose 126 mg/dL (70-100) H 10/18/17 11:20 Calcium 9.2 mg/dL (8.5-10.4) 10/18/17 11:20 Total Bilirubin 0.8 mg/dL (0.1-1.4) 10/18/17 11:20 Conjugated Bilirubin 0.2 mg/dL (0.0-0.5) 10/18/17 11:20 Unconjugated Bilirubin 0.6 mg/dL (0.0-1.1) 10/18/17 11:20 AST 85 IU/L (17-59) H 10/18/17 11:20 ALT 36 IU/L (21-72) 10/18/17 11:20 Alkaline Phosphatase 2183 IU/L (38-126) H 10/18/17 11:20 Total Protein 5.6 g/dL (6.3-8.2) L 10/18/17 11:20 Albumin 3.6 g/dL (3.5-5.0) 10/18/17 11:20 Assessment & Plan Assessment: #Dehydration #Acute Kidney Injury #Nause and Vomiting #Hypotension #Gen Weakness #Prostate cancer with mets to bone #chronic pain syndrome #Pedal edema #pancytopenia, Anemia #immunocompromised state #daily prednisone use #Daily Ibuprofen use Plan: Admit observation Additional IVF Transfuse 1 unit PRBC, symptomatic anemia no e/o of infection cont steroids, no stress dose for now hold NSAIDS dietary consult PT/OT Onc to see monitor platelets SCDs no chemical DVT proph Full code, confirmed at bedside
[2017-10-18] MEDS: NS 1,000 ML IV SCH (17:46)
[2017-10-18] MEDS: ASPIRIN 81 MG CHEWABLE TAB PO SCH (19:14)
[2017-10-18] MEDS: GABAPENTIN 300 MG CAP PO SCH ×2 (19:14→23:40)
[2017-10-18] MEDS: ACYCLOVIR 400 MG TAB PO SCH (19:14)
[2017-10-18] MEDS: predniSONE 5 MG TAB PO SCH (19:15)
[2017-10-18] MEDS: ATORVASTATIN CALCIUM 20 MG TAB PO SCH (19:15)
[2017-10-19 04:20] LABS: PLATELET COUNT 35 10^3/uL (150-400)
[2017-10-19] MEDS: NS 1,000 ML IV SCH (05:42)
[2017-10-19] MEDS: GABAPENTIN 300 MG CAP PO SCH ×5 (05:42→20:22)
[2017-10-19] MEDS: ACYCLOVIR 400 MG TAB PO SCH ×2 (08:46→20:21)
[2017-10-19] MEDS: fentaNYL 12 MCG PATCH TD SCH (08:46)
[2017-10-19] MEDS: MULTIVITAMINS 1 EACH TAB PO SCH (08:47)
[2017-10-19] MEDS: traMADol 50 MG TAB PO PRN ×2 (08:47→14:58)
[2017-10-19] MEDS: predniSONE 5 MG TAB PO SCH ×2 (08:48→18:33)
--- NOTE | 2017-10-19 10:59 | HOSPPROG ---
Hospitalist Progress Note Assessment/Plan: #Dehydration, resolving #Acute Kidney Injury, resolved #Nause and Vomiting, resolving #Hypotension, resolved #Gen Weakness #Prostate cancer with mets to bone #chronic pain syndrome #Pedal edema, persistent #pancytopenia, Anemia, s/p 1 unit PRBC 2/3 #immunocompromised state #daily prednisone use #Daily Ibuprofen use Plan: Feels better Will stop IVF and monitor oral intake PT/OT repeat labs in a.m. Dietary consult Onc following monitor platelets SCDs no chemical DVT proph Full code, confirmed at bedside Dispo: make inpatient, keep overnight, likely d/c tomorrow d/w oncology Subjective: starting to feel better. Better oral intake. Afebrile. No CP or SOB. Nausea is significantly improved Objective: Vital Signs Temp Pulse Resp BP Pulse Ox 36.6 C 79 18 118/58 L 91 L 10/19/17 07:29 10/19/17 07:29 10/19/17 07:29 10/19/17 07:29 10/19/17 07:29 Laboratory Results 10/19/17 03:54 10/19/17 03:54 10/18/17 10/19/17 10/20/17 05:59 05:59 05:59 Intake Total 3950 Output Total 1325 Balance 2625 - Physical Exam Constitutional: no apparent distress, appears nourished Eyes: PERRL, EOMI Ears, Nose, Mouth, Throat: moist mucous membranes Cardiovascular: regular rate and rhythym, edema (trace LE bilaterally) Respiratory: reduced air movement Gastrointestinal: normoactive bowel sounds, soft, non-tender abdomen Genitourinary: no bladder fullness Skin: warm Musculoskeletal: generalized weakness Neurologic: AAOx3 Psychiatric: interacting appropriately, not anxious, not encephalopathic, thought process linear ICD10 Worksheet Patient Problems: Problems Problem Status Onset Anemia Acute Dehydration Acute Prostate cancer metastatic to bone Acute Renal insufficiency Acute Adenocarcinoma of prostate Acute Bone metastases Acute Hydronephrosis with ureteral calculus Acute Parotitis Acute Ureterolithiasis Acute
--- NOTE | 2017-10-19 11:25 | PDMN ---
Medical Necessity Medical necessity: C/M review: est. > 2 MN LOS for eval and TX of acute dehydration, nausea / vomiting - resolving, acute kidney injury and hypotension - resolved, acuter and persistent generalized weakness, pancytopenia, anemia requiring 1 unit PRBCs, IV fluids, oncology consult, planned Dietary consult, repeat labs 10/20/2017, ongoing monitoring oral intake, acute inpt PT/OT, comorbid prostate cancer with metastasis to bone, chronic pain syndrome, immunocompromised state, daily prednisone use, daily ibuprofen use per 10/19/2017 Hospitalist progress note.
[2017-10-19] MEDS ORDERED: LACTULOSE 20 GM/30 ML UDCUP PO PRN (12:18)
[2017-10-19] MEDS ORDERED: MAGNESIUM HYDROXIDE 30 ML UDCUP PO PRN (12:18)
[2017-10-19] MEDS ORDERED: POLYETHYLENE GLYCOL 3350 17 GM PKT PO PRN (12:18)
[2017-10-19] MEDS ORDERED: BISACODYL 10 MG SUPP PR PRN (12:18)
--- NOTE | 2017-10-19 12:18 | GCON ---
[f rep st] CONSULTATION HEMATOLOGY/ONCOLOGY CONSULTATION REASON FOR CONSULTATION: Metastatic prostate cancer. HISTORY OF PRESENT ILLNESS: The patient is a 72-year-old man with metastatic, hormone refractory, prostate cancer, who was admitted yesterday with vomiting. He has been having increasing bone pain, and was prescribed Percocet and an increase in his fentanyl patch to 25 mcg/hour on . He developed vomiting shortly after taking Percocet. He had started Zytiga (abiraterone) on , as well. On admission, hemoglobin was 7.7, down from 8.7, 2017. He received a unit of blood overnight, as well as IV fluids. He is feeling much better this morning. His is present. In terms of pain, he feels quite comfortable at rest. He has some "aches and pains" when he moves. He has not been up walking much yet this morning. He has had no further nausea or vomiting. PAST MEDICAL HISTORY: 1. Metastatic prostate cancer diagnosed 2011. He has previously received docetaxel and enzalutamide. 2. Shingles. SOCIAL HISTORY: He lives with his in [place]. He is retired. FAMILY HISTORY: Family history of liver, lung, ovarian cancer. REVIEW OF SYSTEMS: CONSTITUTIONAL: Fatigue longstanding. CARDIOVASCULAR: Chronic bilateral lower extremity edema, unchanged. No chest pain, palpitations , orthopnea. RESPIRATORY: No pleurisy, cough. MUSCULOSKELETAL: Per HPI. GI : Per HPI. He has not been constipated this past week. HEMATOLOGIC: No bleeding or bruising. PHYSICAL EXAM: VITAL SIGNS: Blood pressure 118/58, heart rate 79, respirations 18, 9% to 94% on 2.5 L, afebrile. GENERAL: Pleasant gentleman in no acute distress. Alert and oriented. Pale. HEENT: No scleral icterus. LUNGS: Breathing comfortably. CARDIOVASCULAR: Firm pretibial edema bilaterally. LABORATORY DATA: WBC 3.9, hemoglobin 7.6, MCV 106.7, platelets 35,000. Nucleated red cells present, metamyelocytes present. Normal BMP. (10/18/2017) . Alkaline phosphatase 2183. Creatinine 1.7. IMPRESSION: 1. Vomiting, likely secondary to Percocet. 2. Acute kidney injury due to dehydration secondary to #1. 3. Metastatic prostate cancer to bone with pain. 4. 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 PLAN: He is doing much better this morning. His hemoglobin is unchanged following transfusion, which may be in part related to the IV fluids he also received. That should be rechecked tomorrow. His pain control has improved, likely with the increase in the fentanyl patch on . He tolerated Percocet for breakthrough pain poorly. He has also had problems with [place] in the past. He tolerates tramadol well. He is encouraged to be more active in the hospital and will start some physical therapy. If his pain control is inadequate, tramadol can be used, and he may need eventual increase in the fentanyl patch, but we will monitor from here. His prostate cancer treatment options are limited due to his significant pancytopenia. We discussed resuming Zytiga tomorrow. In light of his thrombocytopenia, would discontinue aspirin. /[id number]/MODL MTDD
[2017-10-19] MEDS: ONDANSETRON 4 MG/2 ML VIAL IVP PRN (17:28)
--- NOTE | 2017-10-19 17:56 | ASMTCMCOM ---
CM Note CM Note Notes: 72 year old male admitted for N/V, poor oral intake, Hypotension. He has a hx of prostate CA with mets to the bone, CAD, Chronic back pain, Shingles. Lives with his . PT recommending HC at this time. CM to follow. Date Signed: 10/19/2017 05:55 PM Electronically Signed By:Shantell Ruiz LCSW
[2017-10-19] MEDS: ATORVASTATIN CALCIUM 20 MG TAB PO SCH (20:22)
[2017-10-19] MEDS: SENNOSIDES/DOCUSATE SODIUM TAB PO SCH (20:22)
[2017-10-19] MEDS: ASPIRIN 81 MG CHEWABLE TAB PO SCH (20:23)
[2017-10-19] MEDS: ONDANSETRON DISINTEGRATING 4 MG TAB PO PRN (21:49)
[2017-10-20] MEDS: GABAPENTIN 300 MG CAP PO SCH ×4 (05:19→20:46)
[2017-10-20 05:33] LABS: PLATELET COUNT 33 10^3/uL (150-400)
[2017-10-20] MEDS: ONDANSETRON DISINTEGRATING 4 MG TAB PO PRN ×2 (08:26→18:01)
[2017-10-20] MEDS: predniSONE 5 MG TAB PO SCH ×2 (08:27→18:00)
[2017-10-20] MEDS: ACYCLOVIR 400 MG TAB PO SCH ×2 (08:27→20:46)
[2017-10-20] MEDS: MULTIVITAMINS 1 EACH TAB PO SCH (08:28)
[2017-10-20] MEDS: SENNOSIDES/DOCUSATE SODIUM TAB PO SCH ×2 (08:29→20:47)
--- NOTE | 2017-10-20 09:30 | SOAPPROG ---
SOAP Progress Note Assessment/Plan: Assessment: 1) Metastatic prostate cancer 2) Anemia secondary to marrow involvement from #1 3) Hypoxemia 4) Bone pain secondary to #1 5) Nausea secondary to narcotic pain medication Plan: He is somewhat better today. He has mild lethargy secondary to Fentanyl, but pain is better controlled. No nausea with his current pain meds. Using Tramadol for breakthrough pain. I think that he would benefit from 1 additional unit of blood, since his anemia remains symptomatic. He consents to transfusion. Possible d/c tomorrow. PT is seeing him today. 10/20/17 09:26 Subjective: Pain under better control. Remains fatigued. Denies nausea. at bedside Objective: Vital Signs Temp Pulse Resp BP Pulse Ox 36.8 C 77 16 128/62 H 94 10/20/17 07:31 10/20/17 07:31 10/20/17 07:31 10/20/17 07:31 10/20/17 07:31 Laboratory Results 10/20/17 04:30 10/20/17 04:30 10/19/17 10/20/17 10/21/17 05:59 05:59 05:59 Intake Total 1260 Output Total 300 Balance 960 - Time Spent With Patient Time Spent With Patient: 30 minutes Physical Exam - Physical Exam General Appearance: alert, no apparent distress EENT: PERRL/EOMI, normal ENT inspection Respiratory: lungs clear Cardiac/Chest: regular rate, rhythm Abdomen: non-tender, soft Skin: pallor Neuro/Psych: alert, normal mood/affect ICD10 Worksheet Patient Problems: Problems Problem Status Onset Anemia Acute Dehydration Acute Prostate cancer metastatic to bone Acute Renal insufficiency Acute Adenocarcinoma of prostate Acute Bone metastases Acute Hydronephrosis with ureteral calculus Acute Parotitis Acute Ureterolithiasis Acute
[2017-10-20] MEDS: PROCHLORPERAZINE MALEATE 5 MG TAB PO PRN (12:18)
[2017-10-20] MEDS: SCOPOLAMINE HYDROBROMIDE 1 MG/3 DAYS PATCH TD SCH (13:52)
--- NOTE | 2017-10-20 14:19 | ASMTCMCOM ---
CM Note CM Note Notes: PT still recommending HHC. Met w/pt and , [facility]. They would like to think about whether or not they would like HHC. CM will touch base with pt again tomorrow to see what he decides. Date Signed: 10/20/2017 02:19 PM Electronically Signed By:Rosa Sanders RN
--- NOTE | 2017-10-20 16:43 | HOSPPROG ---
Hospitalist Progress Note Assessment/Plan: #Acute Kidney Injury 2/2 dehydration creatinine 1.7 -> 0.9 this am - encourage PO - when adequate dc IVF # Acute hypoxic respiratory failure - cause unclear - possibly narcotics CXR previous stay (personally reviewed and interpreted) nothing abnormal - check CXR in am if remains hypoxic #Nausea and Vomiting- persists and comes on suddenly not always provoked by food - occasional by movement - trial of scopolamine patch - try pre-prandial zofran # Hypotension, resolved #Prostate cancer with mets to bone - cont fentanyl patch - oncology following closely - cont chronic prednisone #chronic pain syndrome #pancytopenia, Anemia, - patient remains very symptomatic - s/p 1 unit PRBC 2/3 - agree repeat transfusion PRBC today # dispo - > 2 MN as requires ongoing med titration and nourishment I have discussed the case with PharmD - we will trial scopolamine patch for persistent nausea Subjective: nausea persists Objective: Vital Signs Temp Pulse Resp BP Pulse Ox 36.7 C 76 12 124/72 H 94 10/20/17 15:00 10/20/17 15:00 10/20/17 15:00 10/20/17 15:00 10/20/17 15:00 Laboratory Results 10/20/17 04:30 10/20/17 04:30 10/19/17 10/20/17 10/21/17 05:59 05:59 05:59 Intake Total 1260 275 Output Total 300 325 Balance 960 -50 - Physical Exam Constitutional: no apparent distress Eyes: anicteric sclera Ears, Nose, Mouth, Throat: moist mucous membranes Cardiovascular: regular rate and rhythym Respiratory: no respiratory distress Gastrointestinal: normoactive bowel sounds, distension Genitourinary: no bladder fullness Skin: warm Musculoskeletal: No asymmetric calves Neurologic: AAOx3 Psychiatric: interacting appropriately Lymph, Heme, Immunologic: no cervical LAD ICD10 Worksheet Patient Problems: Problems Problem Status Onset Anemia Acute Dehydration Acute Prostate cancer metastatic to bone Acute Renal insufficiency Acute Adenocarcinoma of prostate Acute Bone metastases Acute Hydronephrosis with ureteral calculus Acute Parotitis Acute Ureterolithiasis Acute
[2017-10-20] MEDS: ATORVASTATIN CALCIUM 20 MG TAB PO SCH (20:46)
[2017-10-20] MEDS: ASPIRIN 81 MG CHEWABLE TAB PO SCH (21:31)
[2017-10-21 05:48] LABS: PLATELET COUNT 29 10^3/uL (150-400)
[2017-10-21] MEDS: GABAPENTIN 300 MG CAP PO SCH ×4 (08:30→21:07)
[2017-10-21] MEDS: SENNOSIDES/DOCUSATE SODIUM TAB PO SCH ×2 (08:45→21:07)
[2017-10-21] MEDS: MULTIVITAMINS 1 EACH TAB PO SCH (08:46)
[2017-10-21] MEDS: ACYCLOVIR 400 MG TAB PO SCH ×2 (08:47→21:07)
[2017-10-21] MEDS: predniSONE 5 MG TAB PO SCH ×2 (08:47→17:09)
[2017-10-21] MEDS: ONDANSETRON DISINTEGRATING 4 MG TAB PO PRN ×2 (08:47→17:09)
--- NOTE | 2017-10-21 12:26 | SOAPPROG ---
SOAP Progress Note Assessment/Plan: Assessment: 1) Metastatic prostate cancer 2) Anemia / Thrombocytopenia secondary to marrow involvement from #1 3) Hypoxemia 4) Bone pain secondary to #1 5) Nausea secondary to narcotic pain medication Plan: He still has mild lethargy secondary to Fentanyl, but pain is better controlled. Using Tramadol for breakthrough pain. He received 1 unit of PRBC's yesterday. Good response to transfusion. He remains hypoxic. He did not require O2 prior to this hospital stay. His chest x ray shows small bilateral pleural effusions. These would not appear to explain his hypoxia. Will get a CTA to exclude PE today. Possible his hypoxemia is related to the narcotics. Plan d/w nursing, patient and patient's . 10/20/17 09:26 10/21/17 12:23 10/21/17 12:27 Subjective: Less confused. Denies pain. Remains hypoxic. Denies chest pain or dyspnea at rest. at bedside. Objective: Vital Signs Temp Pulse Resp BP Pulse Ox 36.4 C 73 14 118/66 94 10/21/17 08:23 10/21/17 08:23 10/21/17 08:23 10/21/17 08:23 10/21/17 08:23 Laboratory Results 10/21/17 05:12 10/21/17 05:12 10/20/17 10/21/17 10/22/17 05:59 05:59 05:59 Intake Total 1260 525 Output Total 300 925 305 Balance 960 -400 -305 - Time Spent With Patient Time Spent With Patient: 30 minutes Physical Exam - Physical Exam General Appearance: alert, no apparent distress EENT: PERRL/EOMI Respiratory: other (Decreased at both bases) Cardiac/Chest: regular rate, rhythm Abdomen: non-tender, soft Skin: normal color Neuro/Psych: normal mood/affect ICD10 Worksheet Patient Problems: Problems Problem Status Onset Anemia Acute Dehydration Acute Prostate cancer metastatic to bone Acute Renal insufficiency Acute Adenocarcinoma of prostate Acute Bone metastases Acute Hydronephrosis with ureteral calculus Acute Parotitis Acute Ureterolithiasis Acute
[2017-10-21] MEDS ORDERED: IOPAMIDOL (ISOVUE 370) 100 ML BTL IV ONE (14:23)
--- NOTE | 2017-10-21 15:22 | HOSPPROG ---
Hospitalist Progress Note Assessment/Plan: #Acute Kidney Injury 2/2 dehydration creatinine 1.7 -> 0.9 this am - encourage PO - when adequate dc IVF # Acute hypoxic respiratory failure - cause unclear - possibly narcotics- oxygen saturations 94% on 4L CXR (personally reviewed and interpreted) without infiltrates- radiology query airways disease - CTA ordered to rule out PE #Nausea and Vomiting- persists and comes on suddenly not always provoked by food - occasional by movement - continue scopolamine patch - try pre-prandial zofran # Hypotension, resolved # Prostate cancer with mets to bone - cont fentanyl patch at 24 as markedly improved pain control - oncology following closely - cont chronic prednisone # chronic pain syndrome # pancytopenia, Anemia, - patient remains very symptomatic - s/p 2 unit PRBC since admit - no indication for transfusion today # dispo - > 2 MN as requires ongoing med titration and nourishment I have discussed the case with RN - will work to mobilize patient today and increase PO intake - home or dc home tomorrow Subjective: tolerating pancakes Objective: Vital Signs Temp Pulse Resp BP Pulse Ox 37.1 C 75 17 110/62 93 10/21/17 13:30 10/21/17 13:30 10/21/17 13:30 10/21/17 13:30 10/21/17 13:30 Laboratory Results 10/21/17 05:12 10/21/17 05:12 10/20/17 10/21/17 10/22/17 05:59 05:59 05:59 Intake Total 1260 525 Output Total 300 925 305 Balance 960 -400 -305 - Physical Exam Constitutional: chronically ill appearing Eyes: anicteric sclera Ears, Nose, Mouth, Throat: dry mucous membranes Cardiovascular: regular rate and rhythym Respiratory: no respiratory distress, no rales or rhonchi Gastrointestinal: normoactive bowel sounds Genitourinary: no bladder fullness Skin: warm Musculoskeletal: No asymmetric calves Neurologic: AAOx3 Psychiatric: interacting appropriately Lymph, Heme, Immunologic: no cervical LAD ICD10 Worksheet Patient Problems: Problems Problem Status Onset Anemia Acute Dehydration Acute Prostate cancer metastatic to bone Acute Renal insufficiency Acute Adenocarcinoma of prostate Acute Bone metastases Acute Hydronephrosis with ureteral calculus Acute Parotitis Acute Ureterolithiasis Acute
--- NOTE | 2017-10-21 16:16 | ASMTCMCOM ---
CM Note CM Note Notes: Attempted to speak with patient and about PT recommendation for home PT. They were not really interested in talking, said it had been "a long day." I said we'd revisit tomorrow. Patient will likely d.c tomorrow; he had a chest CTA today to confirm presence of small pleural effusions. CM will follow. Current CM Discharge plan: home independent or home with home PT Date Signed: 10/21/2017 04:16 PM Electronically Signed By:Sierra Boone RN
[2017-10-21] MEDS: ASPIRIN 81 MG CHEWABLE TAB PO SCH (21:05)
[2017-10-21] MEDS: ATORVASTATIN CALCIUM 20 MG TAB PO SCH (21:07)
[2017-10-22 05:24] LABS: PLATELET COUNT 27 10^3/uL (150-400)
[2017-10-22] MEDS: GABAPENTIN 300 MG CAP PO SCH ×4 (06:22→20:26)
[2017-10-22] MEDS: traMADol 50 MG TAB PO PRN ×2 (07:55→15:14)
[2017-10-22] MEDS: fentaNYL 12 MCG PATCH TD SCH (07:56)
[2017-10-22] MEDS: MULTIVITAMINS 1 EACH TAB PO SCH (08:01)
[2017-10-22] MEDS: ACYCLOVIR 400 MG TAB PO SCH ×2 (08:01→20:26)
[2017-10-22] MEDS: predniSONE 5 MG TAB PO SCH ×2 (08:01→17:32)
[2017-10-22] MEDS: SENNOSIDES/DOCUSATE SODIUM TAB PO SCH ×2 (08:02→20:26)
[2017-10-22] MEDS: ONDANSETRON 4 MG/2 ML VIAL IVP PRN ×3 (08:56→18:16)
--- NOTE | 2017-10-22 10:01 | SOAPPROG ---
SOAP Progress Note Assessment/Plan: Assessment: 1) Metastatic prostate cancer 2) Anemia / Thrombocytopenia secondary to marrow involvement from #1 3) Hypoxemia 4) Bone pain secondary to #1 5) Nausea secondary to narcotic pain medication 6) Constipation Plan: He still has mild lethargy secondary to Fentanyl, but pain is better controlled. Using Tramadol for breakthrough pain. His platelets remain low. I suspect that this is related to prostate cancer involvement of his bone marrow. He remains hypoxic. He did not require O2 prior to this hospital stay. His CT scan showed no evidence of PE. He does have bilateral pleural effusions. I would call the right effusion moderate, not large. These are likely chronic and I do not favor thoracentesis currently, especially in light of his low platelets. Plan to initiate and ABX (Levaquin) today for possible underlying pneumonia. Possible his hypoxemia is related to the narcotics. I think he would benefit from a SNF. He and his are open to this. Case management will discuss with them today. Will resume his Zytiga today (1000 mg daily). Will add Miralax for constipation. Plan d/w nursing, patient and patient's , and Hospitalist. 10/20/17 09:26 10/21/17 12:23 10/21/17 12:27 10/22/17 09:54 Subjective: Remains weak and fatigued. Objective: Vital Signs Temp Pulse Resp BP Pulse Ox 36.3 C 83 18 122/72 H 95 10/22/17 04:00 10/22/17 04:00 10/22/17 04:00 10/22/17 04:00 10/22/17 04:00 Laboratory Results 10/22/17 04:37 10/21/17 05:12 10/21/17 10/22/17 10/23/17 05:59 05:59 05:59 Intake Total 525 1000 Output Total 925 680 Balance -400 320 Physical Exam - Physical Exam General Appearance: alert, other (Remains weak and fatigued) Respiratory: other (Decreased at both bases) Cardiac/Chest: regular rate, rhythm Abdomen: non-tender, soft Neuro/Psych: alert, normal mood/affect ICD10 Worksheet Patient Problems: Problems Problem Status Onset Anemia Acute Dehydration Acute Prostate cancer metastatic to bone Acute Renal insufficiency Acute Adenocarcinoma of prostate Acute Bone metastases Acute Hydronephrosis with ureteral calculus Acute Parotitis Acute Ureterolithiasis Acute
[2017-10-22] MEDS ORDERED: NS 500 ML IV ONE (13:06)
--- NOTE | 2017-10-22 14:35 | HOSPPROG ---
Hospitalist Progress Note Assessment/Plan: #Acute Kidney Injury 2/2 dehydration creatinine 1.7 -> 0.9 this am - encourage PO # Hypotension - responded to fluid bolus, monitor # Acute hypoxic respiratory failure - pleural effusion noted on CT, personally reviewed and interpreted, no PE. Not very symptomatic and he does not want to pursue thoracentesis at this time. 94% on 4L - Consider thoracentesis if symptoms worse, deferring today due to low platelets and minimal symptoms - Will give short course of Levaquin for possible infectious component #Nausea and Vomiting- persists and comes on suddenly not always provoked by food - occasional by movement - continue scopolamine patch - try pre-prandial zofran # Prostate cancer with mets to bone - cont fentanyl patch at 24 as markedly improved pain control - add scheduled tylenol - oncology following closely - cont chronic prednisone # chronic pain syndrome # pancytopenia, Anemia, - s/p 2 unit PRBC since admit, plts continue to trend down - no indication for transfusion today # dispo - > 2 MN as requires ongoing med titration and nourishment Subjective: Pt's main complaint is pain control. Gets jolts of 10/10 pain at times. Denies CP or SOB. Taking some PO. Objective: Vital Signs Temp Pulse Resp BP Pulse Ox 36.3 C 92 18 88/54 L 95 10/22/17 12:14 10/22/17 12:14 10/22/17 12:14 10/22/17 12:14 10/22/17 12:14 Laboratory Results 10/22/17 04:37 10/21/17 05:12 10/21/17 10/22/17 10/23/17 05:59 05:59 05:59 Intake Total 525 1000 Output Total 925 680 Balance -400 320 - Physical Exam Constitutional: no apparent distress Eyes: PERRL Ears, Nose, Mouth, Throat: moist mucous membranes Cardiovascular: regular rate and rhythym Respiratory: no respiratory distress, reduced air movement, inspiratory crackles Gastrointestinal: normoactive bowel sounds, soft, non-tender abdomen Skin: warm Musculoskeletal: full muscle strength Neurologic: AAOx3 Psychiatric: interacting appropriately ICD10 Worksheet Patient Problems: Problems Problem Status Onset Anemia Acute Dehydration Acute Prostate cancer metastatic to bone Acute Renal insufficiency Acute Adenocarcinoma of prostate Acute Bone metastases Acute Hydronephrosis with ureteral calculus Acute Parotitis Acute Ureterolithiasis Acute
--- NOTE | 2017-10-22 15:43 | ASMTCMCOM ---
CM Note CM Note Notes: MD and RN recommending SNF. Met with pt and to discuss DC plan. Both agree with SNF. [facility] 1st choice but no bed. [facility] 2nd choice but bed availability depends on day of DC. Faxed referral. CM will continue to follow. Date Signed: 10/22/2017 03:42 PM Electronically Signed By:Serena Salinas LCSW
[2017-10-22] MEDS: ATORVASTATIN CALCIUM 20 MG TAB PO SCH (20:26)
[2017-10-22] MEDS: Abiraterone Acetate [Zytiga] 1,000 MG PO SCH (20:27)
[2017-10-22] MEDS: ASPIRIN 81 MG CHEWABLE TAB PO SCH (22:00)
[2017-10-23] MEDS: GABAPENTIN 300 MG CAP PO SCH ×2 (05:52→12:28)
[2017-10-23] MEDS: ONDANSETRON 4 MG/2 ML VIAL IVP PRN ×2 (07:47→12:32)
[2017-10-23 09:02] LABS: PLATELET COUNT 34 10^3/uL (150-400)
[2017-10-23 09:38] VITALS: RESP 18
[2017-10-23] MEDS: SCOPOLAMINE HYDROBROMIDE 1 MG/3 DAYS PATCH TD SCH (09:39)
[2017-10-23] MEDS: PROCHLORPERAZINE MALEATE 5 MG TAB PO PRN (09:39)
[2017-10-23] MEDS: ACYCLOVIR 400 MG TAB PO SCH (10:35)
[2017-10-23] MEDS: traMADol 50 MG TAB PO PRN (10:36)
[2017-10-23] MEDS: predniSONE 5 MG TAB PO SCH (10:36)
[2017-10-23] MEDS: SENNOSIDES/DOCUSATE SODIUM TAB PO SCH (10:36)
[2017-10-23] MEDS: MULTIVITAMINS 1 EACH TAB PO SCH (10:36)
--- NOTE | 2017-10-23 11:31 | ASMTCMCOM ---
CM Note CM Note Notes: Met with pt and Fela. They are choosing to return home with HC rather than SNF. They chose [facility] for HC PT/RN. [facility] Pt will likely DC today. Date Signed: 10/23/2017 11:30 AM Electronically Signed By:Serena Salinas LCSW
[2017-10-23 12:11] VITALS: BP 92/48
--- NOTE | 2017-10-23 12:50 | SOAPPROG ---
SOAP Progress Note Assessment/Plan: Assessment: 1) Metastatic prostate cancer 2) Anemia / Thrombocytopenia secondary to marrow involvement from #1 3) Hypoxemia with bilateral pleural effusions 4) Bone pain secondary to #1 5) Nausea secondary to narcotic pain medication 6) Constipation Plan: He has mild lethargy secondary to Fentanyl, but pain is better controlled, and thus we have chosen to keep him on his current dose. Using Tramadol for breakthrough pain. His platelets remain low. I suspect that this is related to prostate cancer involvement of his bone marrow. They have improved a bit today. He remains hypoxic. He did not require O2 prior to this hospital stay. His CT scan showed no evidence of PE. He does have bilateral pleural effusions. I would call the right effusion moderate, not large. These are likely chronic and I do not favor thoracentesis currently, especially in light of his low platelets. Plan to continue Levaquin at discharge for possible underlying pneumonia. He will go home on O2. Possible his hypoxemia is related to the narcotics. He has resumed Zytiga (1000 mg daily), and will continue it at discharge. He already has an Rx fopr this that he has filled. Constipation improved. He will go home today. He and his have decided against SNF. I will notify Dr. Franz of his D/C. He will be seen in the office next week. Plan d/w patient and patient's . Subjective: Remains fatigued, but feels overall better and wants to go home. at bedside Objective: Vital Signs Temp Pulse Resp BP Pulse Ox 37.5 C 92 18 92/48 L 93 10/23/17 12:06 10/23/17 12:06 10/23/17 12:06 10/23/17 12:06 10/23/17 12:06 Laboratory Results 10/23/17 08:52 10/21/17 05:12 10/22/17 10/23/17 10/24/17 05:59 05:59 05:59 Intake Total 1000 2200 Output Total 680 150 Balance 320 0 - Time Spent With Patient Time Spent With Patient: 25 minutes Physical Exam - Physical Exam General Appearance: other (Lethargic. NAD) EENT: PERRL/EOMI Respiratory: other (Decreased both bases) Cardiac/Chest: regular rate, rhythm Abdomen: non-tender, soft Neuro/Psych: oriented x 3 ICD10 Worksheet Patient Problems: Problems Problem Status Onset Anemia Acute Dehydration Acute Prostate cancer metastatic to bone Acute Renal insufficiency Acute Adenocarcinoma of prostate Acute Bone metastases Acute Hydronephrosis with ureteral calculus Acute Parotitis Acute Ureterolithiasis Acute
--- NOTE | 2017-10-23 13:09 | PDHOMEO2F ---
Home Oxygen Face to Face Home Orders: I certify that a physician or a nurse practitioner or physician's assistant professor of theater has had a [id number] encounter with this patient on the date of this order due to the diagnosis listed, which relates to the primary reason the patient requires home oxygen. Alternative treatments have been tried, or considered, and deemed ineffective. It is anticipated that supplemental oxygen will result in improvement with treatment. Home oxygen qualifying diagnosis: Pleural effusion Home oxygen secondary diagnosis: Pneumonia SpO2 on room air (%): 86 Frequency of home oxygen needed: continuous Home oxygen liters per minute: 3-4 Home oxygen delivery device: nasal cannula Concentrator: Yes E-tanks for mobility and back up: Yes If ordering portable O2, is the patient mobile in the home?: Yes I certify that, based on these findings, the home oxygen is medically necessary for this patient for the following length of time. Length of time home oxygen needed: 99 years
--- NOTE | 2017-10-23 14:10 | PDIAF ---
- Diagnosis Diagnosis: prostate cancer with bone mets Code Status: Full Code - Medication Management Discharge Medications: Medications to Continue on Transfer Abiraterone Acetate [Zytiga] 1,000 mg PO DAILY 10/18/17 [Last Taken 10/16/17] Acyclovir [Zovirax 400 mg (*)] 400 mg PO BID 10/18/17 [Last Taken 10/18/17 09:00 ] Aspirin [Aspirin 81mg (*)] 81 mg PO HS 10/18/17 [Last Taken 10/17/17] Atorvastatin Calcium [Lipitor 20 mg (*)] 20 mg PO HS 10/18/17 [Last Taken ] Docusate Sodium [Colace 100 MG (*)] 100 mg PO DAILY PRN 10/18/17 [Last Taken Unknown] Gabapentin [Neurontin 300 MG (*)] 600 mg PO QID 10/18/17 [Last Taken 10/18/17 09 :00] Ibuprofen [Motrin (*)] 200 mg PO 5XD@05,09,13,17,21 10/18/17 [Last Taken 09:00] Ibuprofen [Motrin (*)] 200 mg PO DAILY@0100 PRN 10/18/17 [Last Taken Unknown] Multivitamins [Multivitamin (*)] 1 each PO DAILY 10/18/17 [Last Taken 10/17/17] Prochlorperazine Maleate [Compazine 5mg (*)] 5 mg PO Q6H PRN 10/18/17 [Last Taken 10/18/17] predniSONE 5 mg PO BID 10/18/17 [Last Taken 10/18/17 09:00] Acetaminophen [Tylenol Extra Strength] 1,000 mg PO TID #90 tablet 10/23/17 [ Last Taken Unknown] Ondansetron HCl [Zofran] 8 mg PO Q8H PRN #30 tablet 10/23/17 [Last Taken Unknown ] Scopolamine Hydrobromide [Scopolamine Patch] 1 patch TD Q72H #30 patch 10/23/17 [Last Taken Unknown] Sennosides/Docusate Sodium [Senokot-S] 1 - 2 tab PO BID #60 tab 10/23/17 [Last Taken Unknown] fentaNYL [Duragesic 12 MCG Patch (*)] 24 mcg TD Q72H #30 patch 10/23/17 [Last Taken Unknown] levOFLOXACIN [levAQUIN (*)] 750 mg PO DAILY AT 10AM #5 tab 10/23/17 [Last Taken Unknown] traMADol [Ultram 50 mg (*)] 25 mg PO Q6H PRN #30 tab 10/23/17 [Last Taken Unknown] Discharge Medications: Refer to the Discharge Home Medication list for PRN reason. PICC Care - Routine: N/A - Orders Services needed: Registered Nurse, Physical Therapy Isolation Type: None Diet Recommendation: no restrictions on diet - Follow Up Care Current Providers and Referrals: Ed Franz MD [Medical Doctor] - Makenzie Fletcher MD [Primary Care Provider] - As per Instructions
[2017-10-23 14:39] VITALS: PULSE 87; O2SAT 77
[2017-10-23 15:53] VITALS: TEMP 98.3
[2017-10-23] MEDS: Abiraterone Acetate [Zytiga] 1,000 MG PO SCH (15:55)
--- NOTE | 2017-10-23 16:31 | ASDISCHSUM ---
Discharge Information Plan Status:Home with Home Health Medically Cleared to Leave: Discharge Date:10/23/2017 03:56 PM D/C Disposition:Home Health Service ADT D/C Disposition:Home, Routine, Self-Care Projected Discharge Date:10/23/2017 11:00 AM Transportation at D/C: Discharge Delay Reason: Follow-Up Date:10/23/2017 11:00 AM Discharge Slot: Final Diagnosis: Placement Information Referral Type:*Correction/SNF Referral ID:[id number] Provider Name: Address 1: Phone Number: Address 2: Fax Number: City: Selection Factors: State: Referral Type:*Home Health Care Services Referral ID:[id number] Provider Name:[facility] Address 1:[address] [facility] [address] Address 2: City:[place] Selection Factors: State:[place] Patient Contact Information Contact Name:JARADDORITA Relationship: Address:[address] City:[place] Alternate Phone: State/Zip Code:[place] [address] Email: Financial Information Financial Class:Medicare Primary Plan Desc:MEDICARE INPATIENT Primary Plan Number:[id number] Secondary Plan Desc:[facility] Secondary Plan Number:[id number] Assessment Information [facility] CM Progress Note CM Note CM Note Notes: 72 year old male admitted for N/V, poor oral intake, Hypotension. He has a hx of prostate CA with mets to the bone, CAD, Chronic back pain, Shingles. Lives with his . PT recommending HC at this time. CM to follow. Date Signed: 10/19/2017 05:55 PM Electronically Signed By:Shantell Ruiz LCSW [facility] CM Progress Note CM Note CM Note Notes: PT still recommending HHC. Met w/pt and , [facility]. They would like to think about whether or not they would like HHC. CM will touch base with pt again tomorrow to see what he decides. Date Signed: 10/20/2017 02:19 PM Electronically Signed By:Rosa Sanders RN [facility] CM Progress Note CM Note CM Note Notes: Attempted to speak with patient and about PT recommendation for home PT. They were not really interested in talking, said it had been "a long day." I said we'd revisit tomorrow. Patient will likely d.c tomorrow; he had a chest CTA today to confirm presence of small pleural effusions. CM will follow. Current CM Discharge plan: home independent or home with home PT Date Signed: 10/21/2017 04:16 PM Electronically Signed By:Sierra Boone RN [facility] CM Progress Note CM Note CM Note Notes: and [facility] recommending SNF. Met with pt and to discuss DC plan. Both agree with SNF. [facility] 1st choice but no bed. [facility] 2nd choice but bed availability depends on day of DC. Faxed referral. CM will continue to follow. Date Signed: 10/22/2017 03:42 PM Electronically Signed By:Serena Salinas LCSW [facility] CM Progress Note CM Note CM Note Notes: Met with pt and Fela. They are choosing to return home with HC rather than SNF. They chose [facility] for HC PT/RN. [facility] alerted. [facility] alerted that they are no longer needed. Pt will likely DC today. Date Signed: 10/23/2017 11:30 AM Electronically Signed By:Serena Salinas LCSW Intervention Information Intervention Type:*IM-Signed Date of Service:10/23/2017 02:38 PM Patient Type:Inpatient Staff Member:Dang Abbott Hours: Discipline: Severity: Comment:
== END 2017-10-23 15:56 | disposition home health service (06) | DRG 682 ==
LOC: F1N 13:00 → OBSVTOIN 10-19 09:27
PROVIDERS: ADMIT Family Medicine; ATTEND Family Medicine
PROC: 30233N1 Transfusion of Nonautologous Red Blood Cells into Peripheral Vein, Percutaneous Approach (ICD-10-PCS; principal; 2017-10-19)
DX: N17.9 Acute kidney failure, unspecified (principal); J96.01 Acute respiratory failure with hypoxia; C79.51 Secondary malignant neoplasm of bone; D61.818 Other pancytopenia; E86.0 Dehydration; C61 Malignant neoplasm of prostate; G89.4 Chronic pain syndrome; G89.3 Neoplasm related pain (acute) (chronic); Z80.1 Family history of malignant neoplasm of trachea, bronchus and lung; Z80.41 Family history of malignant neoplasm of ovary; Z80.8 Family history of malignant neoplasm of other organs or systems
CPT/HCPCS: 97116-GP; 97161-GP; 97165-GO; 97530-GP; 97535-GO; G0378; G8978-GP-CJ; G8979-GP-CI; G8987-GO-CI; G8988-GO-CI; J2405; J7512; P9016; Q9967

== ENCOUNTER 2017-11-04 16:23 | Inpatient (IN) | payer OTHER ==
[2017-11-04] MEDS ORDERED: traMADol 50 MG TAB PO PRN (19:34)
[2017-11-04] MEDS ORDERED: ACETAMINOPHEN 500 MG TAB PO PRN (19:34)
[2017-11-04] MEDS ORDERED: PROMETHAZINE HCL 25 MG/ML INJ IVP PRN (19:38)
[2017-11-04] MEDS ORDERED: LORazepam 1 MG TAB PO PRN (19:38)
[2017-11-04] MEDS ORDERED: MAGNESIUM HYDROXIDE 30 ML UDCUP PO PRN (19:40)
[2017-11-04] MEDS ORDERED: POLYETHYLENE GLYCOL 3350 17 GM PKT PO PRN (19:40)
[2017-11-04] MEDS ORDERED: LACTULOSE 20 GM/30 ML UDCUP PO PRN (19:40)
[2017-11-04] MEDS ORDERED: BISACODYL 10 MG SUPP PR PRN (19:40)
[2017-11-04] MEDS ORDERED: NS 1,000 ML IV SCH (19:45)
[2017-11-04] MEDS: oxyCODONE IR 5 MG TAB PO PRN (20:22)
[2017-11-04] MEDS: GABAPENTIN 300 MG CAP PO SCH (20:23)
[2017-11-04] MEDS: ACYCLOVIR 400 MG TAB PO SCH (20:23)
--- NOTE | 2017-11-04 20:32 | GHP ---
[f rep st] HISTORY AND PHYSICAL DATE OF ADMISSION: 11/04/2017 CHIEF COMPLAINT: Pain crisis. HISTORY OF PRESENT ILLNESS: Pee is a 72-year-old male with a history of metastatic prostate cancer. He has failed chemotherapy, is now getting radiation therapy. He developed intractable nausea and vomiting, which has been attributed to his fentanyl patch. His fentanyl patch has been discontinued. Now his nausea and vomiting have resolved, but he is in a pain crisis. Oncology planned to initiat e him on methadone, although that is just getting started. He complains of severe low back pain and bilateral upper quadrant pain, which comes in waves and is 10/10 when it is at its worst, and he is h aving spasm and waves of pain as I am in the room examining him. The pain at the bottom of his ribs he attributes to his radiation therapy as this is the location of current treatment. He states he ca n ambulate okay when he is not in severe pain. He has been nausea and vomiting free for only one day . He has had very poor p.o. intake, and has not had a bowel movement for "forever," because he has not eaten "forever." He is getting weaker. His quality of life is poor. He tells me that that he is done, understands he is at end of life, and ready to go to hospice care, although defers all decisio n making to his . His still has a goal of getting him to a position of symptom management a nd pain control for some additional quality of life prior to initiating hospice. PAST MEDICAL HISTORY: 1. Metastatic prostate cancer. Failed chemotherapy, now getting radiation therapy. 2. Coronary artery disease, status post stent to left circumflex, June 2016. 3. Chronic low back pain. PAST SURGICAL HISTORY: Radical prostatectomy. MEDICATIONS: Please see computer for full detailed list. ALLERGIES: Hydrocodone. SOCIAL HISTORY: No smoking, four alcoholic beverages per week. He is currently using a walker. Aracelis es with his . REVIEW OF SYSTEMS: Complete review of systems obtained. Review of systems negative regarding consti tutional, HEENT, GI, pulmonary, cardiovascular, , hematology, skin, muscular, endocrine, psych. Po sitives as in HPI. FAMILY HISTORY: Reviewed, noncontributory to presenting complaint. PHYSICAL EXAMINATION: GENERAL: Well-developed, well-nourished male, in no distress. VITAL SIGNS: Temperature is 36.4, pulse 86, blood pressure 148/88, saturating 95% on 3 L. EYES: Normal conjunctivae. Pupils equally reactive to light. ENT: Normal ears and nose. Hearing intact. Normal teeth. Oropharynx moist. NECK: Trachea midline. No thyromegaly. CHEST: Normal respiratory effort. LUNGS: Clear to auscultation bilaterally. CARDIOVASCULAR: Regu lar rhythm. No murmur. No lower extremity edema. ABDOMEN: Soft, nontender. No hepatosplenomegal y. EXTREMITIES: Warm, dry, intact. No rash. MUSCULOSKELETAL: No cyanosis or clubbing. Strength 5/5, upper and lower extremities. NEUROLOGIC: Cranial nerves intact. Normal sensation to light dolores ch. PSYCHIATRIC: Alert and oriented x3. Normal mood and affect. Normal judgment. Normal memory. LABORATORY DATA: White count 8.59, hematocrit 28.0, platelets 69. Sodium 139, potassium 4.3, chlori de 105, bicarb 25, BUN 18, creatinine 0.7, glucose 83, AST is 81, alkaline phosphatase is 1452. This case was discussed with the [facility], who decided to admit. According to Oncology, he is hospice appropriate when they are ready. MEDICAL RECORDS REVIEW: He was recently hospitalized for nausea and vomiting, leading to the histor y as discussed above. ASSESSMENT/PLAN: 1. Metastatic prostate cancer with uncontrolled pain. He became intolerant of the fentanyl patch du e to nausea and vomiting, and with its discontinuation, he is now thrown into a pain crisis. Oral me thadone has just been started by Dr. Franz. We will try to get him comfortable acutely tonight with IV Dilaudid. Will need to discuss with Oncology whether further imaging is necessary, or if all of h is current pains are explained by his known metastases. We will also consult Palliative Care to help the family with the difficult decision making they are faced with, including a possible DNR status a nd possible transition to hospice. 2. Constipation. If this is treated, he may have improved symptoms regarding nausea and vomiting. Will place him on a bowel protocol. 3. Coronary artery disease, status post stent to the circumflex in June 2016. He is now off aspi rin and Plavix, as it is greater than one year since his last stent, and his platelets are running ve ry low. CODE STATUS: Full, although he is considering DNR. ADMISSION STATUS: Will admit to inpatient as he is medically complex and I doubt he will be ready fo r discharge by tomorrow. DVT PROPHYLAXIS: He is high risk. Will place him on subcu Lovenox. /[id number]/MODL
[2017-11-04] MEDS ORDERED: ATORVASTATIN CALCIUM 20 MG TAB PO SCH (21:00)
[2017-11-04] MEDS ORDERED: IBUPROFEN 200 MG TAB PO PRN (21:00)
[2017-11-04] MEDS ORDERED: ASPIRIN 81 MG CHEWABLE TAB PO SCH (21:00)
[2017-11-04] MEDS ORDERED: predniSONE 5 MG TAB PO ONE (21:30)
[2017-11-04] MEDS: METHADONE HCL 5 MG TAB PO SCH (21:59)
[2017-11-04] MEDS: SENNOSIDES/DOCUSATE SODIUM TAB PO SCH (21:59)
[2017-11-05] MEDS: oxyCODONE IR 5 MG TAB PO PRN ×3 (00:15→08:26)
[2017-11-05 00:20] VITALS: TEMP 97.6
[2017-11-05] MEDS: METHADONE HCL 5 MG TAB PO SCH ×2 (03:41→09:40)
[2017-11-05] MEDS: HYDROmorphONE/DILAUDID 1 MG/ML INJ IVP PRN ×4 (04:27→16:34)
[2017-11-05 04:53] LABS: PLATELET COUNT 56 10^3/uL (150-400)
[2017-11-05 05:02] LABS: INR 1.51 (0.83-1.16); PROTIME(PATIENT) 18.4 SEC (12.0-15.0)
[2017-11-05] MEDS ORDERED: NON-FORMULARY NEW DRUG (Abiraterone Acetate [Zytiga] 1,000 MG) PO SCH (09:00)
[2017-11-05] MEDS ORDERED: ENOXAPARIN 40 MG/0.4 ML SYR SC SCH (09:00)
[2017-11-05 09:10] VITALS: BP 124/74; PULSE 98; RESP 20; O2SAT 88
[2017-11-05] MEDS: GABAPENTIN 300 MG CAP PO SCH (09:39)
[2017-11-05] MEDS: predniSONE 5 MG TAB PO SCH ×2 (09:39→13:08)
[2017-11-05] MEDS ORDERED: LORazepam 2 MG/ML INJ IVP PRN (09:53)
[2017-11-05] MEDS ORDERED: oxyCODONE IR 5 MG TAB PO PRN (09:58)
[2017-11-05] MEDS ORDERED: NS W/ 20 KCl/L 1,000 ML IV SCH (10:00)
[2017-11-05] MEDS ORDERED: METHADONE HCL 5 MG TAB PO SCH (10:00)
[2017-11-05] MEDS ORDERED: METHADONE HCL 5 MG TAB PO ONE (10:30)
--- NOTE | 2017-11-05 10:30 | PDMN ---
Medical Necessity Medical necessity: Pt meets IP criteria per MD; est los >2 mn for eval/tx of metastatic prostate cancer w/uncontrolled pain, constipation & N/V; admit for IV pain meds/med management, IVFs, therapies & Palliative Care consult; hx CAD, metastatic prostate cancer on radiation therapy; per H&P & order 11/04/17
[2017-11-05] MEDS: ACYCLOVIR 400 MG TAB PO SCH (10:59)
[2017-11-05] MEDS: SENNOSIDES/DOCUSATE SODIUM TAB PO SCH (10:59)
--- NOTE | 2017-11-05 11:06 | HOSPPROG ---
Hospitalist Progress Note Assessment/Plan: 72 yo male with advanced metastatic prostate cancer admitted with acute pain syndrome due to reduction of Fentanyl patch which was decreased due to significant Nausea #Acute pain syndrome. LBP, Abd pain #Nausea and vomiting #Dehydration #Met Prostate Cancer Plan: -Increase Methadone -Increase PRN pain meds -Schedule antiemetics -restart IVF -Await Onc consult -Bowel protocol -Await palliative care consult to assist with goals of care and code status -Lovenox for DVT proph -Full code currently Dispo: cont inpatient Subjective: still with lots of pain and nausea. Minimal oral intake. Objective: Vital Signs Temp Pulse Resp BP Pulse Ox 36.4 C 98 20 124/74 H 88 L 11/05/17 09:07 11/05/17 09:07 11/05/17 09:07 11/05/17 09:07 11/05/17 09:07 Laboratory Results 11/05/17 04:45 11/05/17 04:45 11/04/17 11/05/17 11/06/17 05:59 05:59 05:59 Intake Total 787 Output Total 1180 Balance -393 PT 18.4 SEC (12.0-15.0) H 11/05/17 04:45 INR 1.51 (0.83-1.16) H 11/05/17 04:45 - Physical Exam Constitutional: no apparent distress Eyes: PERRL, EOMI Ears, Nose, Mouth, Throat: dry mucous membranes Cardiovascular: regular rate and rhythym, No edema Respiratory: no respiratory distress, no rales or rhonchi, clear to auscultation Gastrointestinal: soft, non-tender abdomen Skin: warm Musculoskeletal: generalized weakness Neurologic: AAOx3 Psychiatric: interacting appropriately, not anxious, not encephalopathic Lymph, Heme, Immunologic: No petechiae ICD10 Worksheet Patient Problems: Problems Problem Status Onset Adenocarcinoma of prostate Acute Anemia Acute Bone metastases Acute Dehydration Acute Hydronephrosis with ureteral calculus Acute Parotitis Acute Prostate cancer metastatic to bone Acute Renal insufficiency Acute Ureterolithiasis Acute
[2017-11-05] MEDS ORDERED: BIOTENE DRY MOUTH MOUTHWASH 237 ML BTL MM PRN (11:12)
--- NOTE | 2017-11-05 13:02 | ASMTCMCOM ---
CM Note CM Note Notes: Pt with hx of metastatic prostate ca admitted for unmanageable pain. Pt and present at palliative consult. Pt and would like to go to inpt hospice if accepted. Order sent to [facility]. They will arrange to have JESU Simon meet with pt and later today. CM to follow. Date Signed: 11/05/2017 01:01 PM Electronically Signed By:Serena Salinas LCSW
[2017-11-05] MEDS ORDERED: ONDANSETRON 4 MG/2 ML VIAL IVP SCH (14:00)
--- NOTE | 2017-11-05 15:53 | PDDCSUM ---
Discharge Summary Discharge Summary: 72 yo male with advanced metastatic prostate cancer admitted with acute pain syndrome due to reduction of Fentanyl patch which was decreased due to significant Nausea. He had significant pain. Given his current sx's and advanced malignancy, palliative care was consulted and the family and the patient ultimately agreed to inpatient hospice. He is being discharged to inpatient hospice. DDX: #Acute pain syndrome. LBP, Abd pain #Nausea and vomiting #Dehydration #Met Prostate Cancer Exam: please see progress note from today d/c: meds: see med rec total time spent on 35 mins
--- NOTE | 2017-11-05 16:26 | GCON ---
[f rep st] CONSULTATION ONCOLOGY INITIAL VISIT PRIMARY ONCOLOGIST: Dr. Socorro Franz. REASON FOR VISIT: E&M metastatic prostate cancer. HISTORY OF PRESENT ILLNESS: The patient is a 72-year-old gentleman with prostate cancer initially diagnosed 2011, it was stage IV diagnosis. He has had different therapies over the years including docetaxel and enzalutamide, and I think recently abiraterone. He is hormone refractory and having difficulty getting his disease, and particularly his pain, under control. He also has low blood counts, probably due to the metastatic prostate cancer, but making other treatment options such as cabazitaxel and Xofigo difficult to use. He recently was on a fentanyl patch to control pain, but was having chronic nausea and vomiting related to that. On Friday, he had the patch removed, in which I believe the vomiting resolved, but now he has was in a pain crisis and he was admitted from the office yesterday. He was started on methadone and a palliative care conference was requested. His has elected to have him go with hospice so they can work on his pain control. He is currently somewhat somnolent, but will wake up to his name and gentle stimulation. He looks comfortable and is currently not in pain. ALLERGIES: Hydrocodone, and fentanyl causes vomiting. HOME MEDICATIONS: Milk of magnesia, acetaminophen, abiraterone, docusate, atorvastatin, aspirin, acyclovir, gabapentin, multivitamin, ibuprofen, tramadol , and prednisone. PAST MEDICAL HISTORY: Chronic illnesses include metastatic prostate cancer as described above, previous shingles, coronary artery disease with a stent placed in left circumflex June 2016. PAST SURGICAL HISTORY: Includes radical prostatectomy. SOCIAL HISTORY: He is . Retired. Drinks occasional alcohol. No smoking. FAMILY HISTORY: Significant for liver, lung and ovarian cancer. REVIEW OF SYSTEMS: A 10-point review of systems are difficult to perform because the patient is somewhat somnolent. PHYSICAL EXAM: VITAL SIGNS: Temperature is 36.4, pulse 98, blood pressure is 124/74. GENERAL: He is resting comfortably. Currently no distress. Pale and chronically ill-appearing man. LUNGS: Some mild upper respiratory sounds, but no wheezing. CARDIAC: Regular with a strong pulse. ABDOMEN: Soft. NEUROLOGICAL: Difficult to assess. LABS: Hemoglobin is 7.3, platelet count 56,000. He has nucleated red cells, ANC though is 5500, but he also has increased myelocytes and metamyelocytes. PSA yesterday was 282, which is rising up from 218 last month, to 143 in August. IMPRESSION: 1. Metastatic prostate cancer. 2. Uncontrolled pain secondary to #1. I agree with trying methadone to see if it helps bring his pain under control, but he has been having a very difficult time at home. They had met with Palliative Care and they elected to go to the hospice care center to try to get his pain under better control. I explained to his that this is very reasonable, particularly since further therapy is difficult to provide due to his low blood counts, and increasingly less likely to work. If they are able to get his pain under control and he is awake and alert, systemic therapy could be readdressed in the future. is tearful, but hopeful that maybe if his pain can get under control at least they may be able to bring him home. She was appropriate and agreeable to this plan. /[id number]/MODL MTDD
--- NOTE | 2017-11-05 16:30 | ASMTCMCOM ---
CM Note CM Note Notes: Aurora from [facility] met with pt and Fela this PM. Decision made to admit to inpt hospice today. Transport arranged by [facility] for 4:45. Final orders given to Aurora. Date Signed: 11/05/2017 04:29 PM Electronically Signed By:Serena Salinas LCSW
--- NOTE | 2017-11-05 17:08 | PDIAF ---
- Diagnosis Diagnosis: prostate cancer, acute pain. Hospice inpatient Code Status: Full Code - Medication Management Discharge Medications: Medications to Continue on Transfer Abiraterone Acetate [Zytiga] 1,000 mg PO DAILY 10/18/17 [Last Taken 10/16/17] Acyclovir [Zovirax 400 mg (*)] 400 mg PO BID 10/18/17 [Last Taken 10/18/17 09:00 ] Aspirin [Aspirin 81mg (*)] 81 mg PO HS 10/18/17 [Last Taken 10/17/17] Atorvastatin Calcium [Lipitor 20 mg (*)] 20 mg PO HS 10/18/17 [Last Taken ] Docusate Sodium [Colace 100 MG (*)] 100 mg PO TID PRN 10/18/17 [Last Taken Unknown] Gabapentin [Neurontin 300 MG (*)] 600 mg PO TID 10/18/17 [Last Taken 11/04/17] Ibuprofen [Motrin (*)] 200 mg PO 5XD@05,09,13,17,21 PRN 10/18/17 [Last Taken 11/30 09:00] Multivitamins [Multivitamin (*)] 1 each PO DAILY 10/18/17 [Last Taken 10/17/17] predniSONE 5 mg PO BID@08,12 10/18/17 [Last Taken 11/04/17] Acetaminophen [Tylenol Extra Strength] 1,000 mg PO TID PRN 11/04/17 [Last Taken Unknown] Magnesium Hydroxide [Milk of Magnesia] 400 mg PO DAILY PRN 11/04/17 [Last Taken Unknown] Methadone HCl 5 mg PO Q6 11/04/17 [Last Taken 11/04/17] traMADol [Ultram 50 mg (*)] 50 mg PO Q4 PRN 11/04/17 [Last Taken Unknown] Discharge Medications: Refer to the Discharge Home Medication list for PRN reason. - Orders Isolation Type: None Diet Recommendation: no restrictions on diet Diet Texture: Regular Texture Diet - Follow Up Care Current Providers and Referrals: Makenzie Fletcher MD [Primary Care Provider] -
--- NOTE | 2017-11-07 15:00 | ASDISCHSUM ---
Discharge Information Plan Status: Medically Cleared to Leave: Discharge Date:11/05/2017 05:15 PM CM D/C Disposition: ADT D/C Disposition:Hospice Facility Projected Discharge Date:11/06/2017 11:00 AM Transportation at D/C: Discharge Delay Reason: Follow-Up Date:11/06/2017 11:00 AM Discharge Slot: Final Diagnosis: Placement Information Referral Type:*Hospice Referral ID:[id number] Provider Name:[facility] ([facility] Address 1:[address] Address 2: City:[place] Selection Factors: State:[place] Patient Contact Information Contact Name:ROMULO Relationship: Address:[address] City:[place] Alternate Phone: State/Zip Code:[place] [address] Email: Financial Information Financial Class:Medicare Primary Plan Desc:MEDICARE INPATIENT Primary Plan Number:[id number] Secondary Plan Desc:SMITH Secondary Plan Number:[id number] Assessment Information [facility] CM Progress Note CM Note CM Note Notes: Pt with hx of metastatic prostate ca admitted for unmanageable pain. Pt and present at palliative consult. Pt and would like to go to in hospice if accepted. Order sent to [facility]. They will arrange to have JESU Simon meet with pt and later today. CM to follow. Date Signed: 11/05/2017 01:01 PM Electronically Signed By:Serena Salinas LCSW [facility] CM Progress Note CM Note CM Note Notes: Aurora from [facility] met with pt and Fela this PM. Decision made to admit to in hospice today. Transport arranged by [facility] for 4:45. Final orders given to Aurora. Date Signed: 11/05/2017 04:29 PM Electronically Signed By:Serena Salinas LCSW Intervention Information
== END 2017-11-05 17:15 | disposition hospice, home (50) | DRG 948 ==
LOC: F1N 17:20
PROVIDERS: ADMIT Internal Medicine; ATTEND Internal Medicine
DX: G89.3 Neoplasm related pain (acute) (chronic) (principal); C79.9 Secondary malignant neoplasm of unspecified site; E86.0 Dehydration; K59.00 Constipation, unspecified; M54.5 Low back pain; I25.10 Atherosclerotic heart disease of native coronary artery without angina pectoris; Z95.5 Presence of coronary angioplasty implant and graft; Z66 Do not resuscitate; Z85.46 Personal history of malignant neoplasm of prostate
CPT/HCPCS: 97161-GP; G8978-GP-CM; G8979-GP-CM; G8980-GP-CM; J1170; J2060; J2270; J2405; J7512